=== PATIENT | male | born 1960 | race Caucasian/White ===

== ENCOUNTER 2016-10-01 07:56 | Emergency (ER) | payer SELFPAY ==
[~2016-10-01] VITALS: Ht 180.3 cm; Wt 72.6 kg
[~2016-10-01 07:56] MED LIST: BUPR150T9 PO; GABA-488 PO; HYDR-3812 PO; SERT50TA2 PO
[2016-10-01 09:02] LABS: BASOPHILS # (AUTO) 0.1 10^3/uL (0.0-0.1); BASOPHILS % (AUTO) 1 % (0-10); EOSINOPHILS # (AUTO) 0.1 10^3/uL (0.0-0.3); EOSINOPHILS % (AUTO) 1 % (0-10); LYMPHOCYTES # (AUTO) 1.6 X 10^3 (1.0-4.0); LYMPHOCYTES % (AUTO) 24 % (12-44); MEAN CORPUSCULAR HEMOGLOBIN 30 PG (25-34); MEAN CORPUSCULAR HGB CONC 34 G/DL (32-36); MEAN CORPUSCULAR VOLUME 90 FL (80-99); MEAN PLATELET VOLUME 10.8 FL (7.4-10.4); MONOCYTES # (AUTO) 0.6 X 10^3 (0.0-1.0); MONOCYTES % (AUTO) 9 % (0-12); NEUTROPHILS # (AUTO) 4.2 X 10^3 (1.8-7.8); NEUTROPHILS % (AUTO) 64 % (42-75); PLATELET COUNT 191 10^3/uL (130-400); RED BLOOD COUNT 5.21 10^6/uL (4.35-5.85); RED CELL DISTRIBUTION WIDTH 12.9 % (10.0-14.5); WHITE BLOOD COUNT 6.5 10^3/uL (4.3-11.0)
[2016-10-01 09:25] LABS: ALANINE AMINOTRANSFERASE 15 U/L (0-55); ALBUMIN 4.1 GM/DL (3.2-4.5); ANION GAP 10 MMOL/L (5-14); ASPARTATE AMINO TRANSFERASE 19 U/L (5-34); BILIRUBIN,TOTAL 0.4 MG/DL (0.1-1.0); BLOOD UREA NITROGEN 17 MG/DL (7-18); BUN/CREATININE RATIO 23 (0-20); CALCIUM 8.7 MG/DL (8.5-10.1); CARBON DIOXIDE 20 MMOL/L (21-32); CHLORIDE 109 MMOL/L (98-107); CREATININE SERUM 0.73 MG/DL (0.60-1.30); GFR ESTIMATED > 60; GLUCOSE 82 MG/DL (70-105); HEMOLYSIS 52 (0-29); ICTERUS 0.5 (0-1.9); LIPEMIA 65 (0-49); POTASSIUM 4.6 MMOL/L (3.6-5.0); SODIUM 139 MMOL/L (135-145); TOTAL PROTEIN 6.3 GM/DL (6.4-8.2)
--- NOTE | 2016-10-01 10:24 | ED Headache ---
General Chief Complaint: Head/Cervical Problems Stated Complaint: HEADACHE/DIZZINESS/NAUSEA Nursing Triage Note: PT C/O HEADACHE SINCE WEDNESDAY WHICH IS CAUSING NAUSEA AND DIZZINESS. HE DENIES TAKING ANY MEDICATIONS . Nursing Sepsis Screen: No Definite Risk Source: patient Exam Limitations: no limitations History of Present Illness Time seen by provider: 10:23 Initial Comments To ER with a frontal headache causing nausea and dizziness for the past 3-4 days. He awakened with this one morning. He denies any neck pain or stiffness. No fevers. No history of headaches and no trauma. He developed diarrhea yesterday. Timing/Duration: constant Severity/Quality: moderate Location: frontal Associated Symptoms: No confusion, No fatigue, No facial pain, No fever/chills , No flushing, nausea/vomiting, No nasal congestion, No nasal drainage, No numbness in legs/feet, No rash, No seizures, No sinus infection, No stiff neck, No vision changes, No weakness Allergies and Home Medications Allergies Coded Allergies: No Known Drug Allergies (Unverified , 04/14/16) Home Medications Bupropion HCl 150 Mg Tablet.er, 150 MG PO DAILY, (Reported) Gabapentin 300 Mg Capsule, 300 MG PO TID, (Reported) Hydrocodone/Acetaminophen 1 Each Tablet, 1-2 TAB PO 4-6HR PRN for PAIN, #40 Prescribed by: EVELIA REYNA on 04/17/16 1428 Sertraline HCl 50 Mg Tablet, 50 MG PO HS, (Reported) Constitutional: see HPI Eyes: No Symptoms Reported Ears, Nose, Mouth, Throat: no symptoms reported Respiratory: no symptoms reported Cardiovascular: no symptoms reported Genitourinary: no symptoms reported Musculoskeletal: no symptoms reported Skin: no symptoms reported Psychiatric/Neurological: See HPI, Headache Past Jehjkdy-Xkojme-Ugzgba Hx Patient Social History Alcohol Use: Denies Use Recreational Drug Use: No Smoking Status: Current Everyday Smoker Type Used: Cigarettes 2nd Hand Smoke Exposure: No Recent Foreign Travel: No Contact w/Someone Who Travel: No Recent Infectious Disease Expo: No Recent Hopitalizations: No Immunizations Up To Date Tetanus Booster (TDap): More than 5yrs Seasonal Allergies Seasonal Allergies: No Surgeries HX Surgeries: Yes (URETHRAL DILATION) Respiratory Hx Respiratory Disorders: No Cardiovascular Hx Cardiac Disorders: No Neurological Hx Neurological Disorders: No (porperia & seizures as child) Neurological Disorders: Seizure Disorder Reproductive System Hx Reproductive Disorders: No Sexually Transmitted Disease: No HIV/AIDS: No Genitourinary Hx Genitourinary Disorders: No (urinary problems at early age) Genitourinary Disorders: Prostate Problems Gastrointestinal Hx Gastrointestinal Disorders: Yes (OCCASIONAL REFLUX) Gastrointestinal Disorders: Gastroesophageal Reflux Musculoskeletal Hx Musculoskeletal Disorders: Yes Musculoskeletal Disorders: Chronic Back Pain Endocrine Hx Endocrine Disorders: No HEENT HX ENT Disorders: Yes (GLASSES) Loss of Vision: Bilateral Hearing Impairment: Hard of Hearing Cancer Hx Cancer: No Psychosocial Hx Psychiatric Problems: Yes Behavioral Health Disorders: Anxiety, Depression Integumentary HX Skin/Integumentary Disorder: No Blood Transfusions Hx Blood Disorders: No Adverse Reaction to a Blood Tr: No (N/A) Family Medical History Family Medial History: Alcoholism 19 FATHER G8 BROTHER (alcoholism) Arthritis G8 BROTHER (gout) Diabetes mellitus 19 MOTHER (diabetic leg ulcers) Hypertension 19 MOTHER Neoplasm 19 FATHER (cancer of pancreas) Physical Exam Vital Signs Vital Sign - Last 12Hours 10/01/16 08:30 Temp 97.9 Pulse 75 Resp 16 B/P (MAP) 168/84 Pulse Ox 96 O2 Delivery Room Air Capillary Refill : Less Than 3 Seconds General Appearance: WD/WN, no apparent distress HEENT: PERRL/EOMI, normal ENT inspection Neck: non-tender, full range of motion Cardiovascular: regular rate, rhythm, no murmur Respiratory: normal breath sounds, no respiratory distress, no accessory muscle use Gastrointestinal: normal bowel sounds, non tender, soft Extremities: normal range of motion Psychiatric: alert, oriented x 3 Crainal Nerves: normal hearing, normal speech, PERRL Skin: normal color, warm/dry Progress/Results/Core Measures Results/Orders Lab Results Laboratory Tests Test 10/01/16 08:54 Range/Units White Blood Count 6.5 4.3-11.0 10^3/uL Red Blood Count 5.21 4.35-5.85 10^6/uL Hemoglobin 15.8 13.3-17.7 G/DL Hematocrit 47 40-54 % Mean Corpuscular Volume 90 80-99 FL Mean Corpuscular Hemoglobin 30 25-34 PG Mean Corpuscular Hemoglobin Concent 34 32-36 G/DL Red Cell Distribution Width 12.9 10.0-14.5 % Platelet Count 191 130-400 10^3/uL Mean Platelet Volume 10.8 H 7.4-10.4 FL Neutrophils (%) (Auto) 64 42-75 % Lymphocytes (%) (Auto) 24 12-44 % Monocytes (%) (Auto) 9 0-12 % Eosinophils (%) (Auto) 1 0-10 % Basophils (%) (Auto) 1 0-10 % Neutrophils # (Auto) 4.2 1.8-7.8 X 10^3 Lymphocytes # (Auto) 1.6 1.0-4.0 X 10^3 Monocytes # (Auto) 0.6 0.0-1.0 X 10^3 Eosinophils # (Auto) 0.1 0.0-0.3 10^3/uL Basophils # (Auto) 0.1 0.0-0.1 10^3/uL Sodium Level 139 135-145 MMOL/L Potassium Level 4.6 3.6-5.0 MMOL/L Chloride Level 109 H 98-107 MMOL/L Carbon Dioxide Level 20 L 21-32 MMOL/L Anion Gap 10 5-14 MMOL/L Blood Urea Nitrogen 17 7-18 MG/DL Creatinine 0.73 0.60-1.30 MG/DL Estimat Glomerular Filtration Rate > 60 BUN/Creatinine Ratio 23 H 0-20 Glucose Level 82 70-105 MG/DL Calcium Level 8.7 8.5-10.1 MG/DL Total Bilirubin 0.4 0.1-1.0 MG/DL Aspartate Amino Transf (AST/SGOT) 19 5-34 U/L Alanine Aminotransferase (ALT/SGPT) 15 0-55 U/L Alkaline Phosphatase 59 40-136 U/L Total Protein 6.3 L 6.4-8.2 GM/DL Albumin 4.1 3.2-4.5 GM/DL My Orders Orders - PATEL MERCHANT APRN Ct Head Wo (10/01/16 10:20) Prochlorperazine Injection (Compazine In (10/01/16 10:30) Ns Iv 1000 Ml (Sodium Chloride 0.9%) (10/01/16 10:30) Diphenhydramine Injection (Benadryl Inje (10/01/16 10:30) Ketorolac Injection (Toradol Injection) (10/01/16 10:30) Medications Given in ED Current Medications Medications Dose Ordered Sig/Anibal Route Start Time Stop Time Status Last Admin Dose Admin Diphenhydramine HCl 25 mg ONCE ONCE IVP 10/01/16 10:30 10/01/16 10:31 DC 10/01/16 10:41 25 MG Ketorolac Tromethamine 30 mg ONCE ONCE IVP 10/01/16 10:30 10/01/16 10:31 DC 10/01/16 10:41 30 MG Prochlorperazine Edisylate 5 mg ONCE ONCE IV 10/01/16 10:30 10/01/16 10:31 DC 10/01/16 10:41 5 MG Vital Signs/I&O Vital Sign - Last 12Hours 10/01/16 08:30 Temp 97.9 Pulse 75 Resp 16 B/P (MAP) 168/84 Pulse Ox 96 O2 Delivery Room Air Blood Pressure Mean: 112 Departure Communication Family Conversation [id number] Compazine and Benadryl Toradol, his headache is much improved. He states he is ready to go home. Progress Notes NAME: HAVEN TEJADA [facility] REC#: [id number] PT STATUS: REG ER : 1960 PHYSICIAN: PATEL MERCHANT APRN ADMIT DATE: 10/01/16/ER Draft Date of Exam:10/01/16 CT HEAD WO PROCEDURE: CT head without contrast. TECHNIQUE: Multiple contiguous axial images were obtained through the brain without the use of intravenous contrast. INDICATION: Headache. FINDINGS: There is no intracranial hemorrhage, edema or mass effect. The brain parenchyma and garrett-white matter differentiation is preserved. There is no hydrocephalus. No extra-axial fluid collection is seen. The calvarium, the paranasal sinuses and visualized portions of the orbits appear grossly unremarkable. IMPRESSION: Unremarkable exam. Dictated on workstation # [id number] Dict: 10/01/16 1050 Trans: 10/01/16 1057 [facility] [id number] Interpreted by: NATALIA JEAN MD Electronically signed by: Impression Impression: Primary Impression: Headache Disposition: HOME, SELF-CARE Condition: Stable Departure-Patient Inst. Decision time for Depature: 11:01 Referrals: [facility] (PCP/Family) Primary Care Physician Patient Instructions: Headache, Adult (DC) Add. Discharge Instructions: 1. Return to ER for any concerns such as worsening pain 2. See her doctor next week 3. All discharge instructions reviewed with patient and/or family. Voiced understanding. Work/School Note: Work Release Form Date Seen in the Emergency Department: Oct 01, 2016 Return to Work: Oct 02, 2016 PATEL MERCHANT APRN Oct 01, 2016 10:24
[2016-10-01] MEDS ORDERED: PROCHLORPERAZINE 10 MG/2ML INJ (COMPAZINE) IV ONE (10:30)
[2016-10-01] MEDS ORDERED: KETOROLAC 30 MG/ML VIAL IVP ONE (10:30)
[2016-10-01] MEDS ORDERED: diphenhydrAMINE 50 MG/ML INJ (BENADRYL) IVP ONE (10:30)
[2016-10-01] MEDS ORDERED: NS IV 1000 ML 1,000 ML IV SCH (10:30)
--- NOTE | 2016-10-01 10:58 | Diagnostic Imaging Report ---
PROCEDURE: CT head without contrast. TECHNIQUE: Multiple contiguous axial images were obtained through the brain without the use of intravenous contrast. INDICATION: Headache. FINDINGS: There is no intracranial hemorrhage, edema or mass effect. The brain parenchyma and garrett-white matter differentiation is preserved. There is no hydrocephalus. No extra-axial fluid collection is seen. The calvarium, the paranasal sinuses and visualized portions of the orbits appear grossly unremarkable. IMPRESSION: Unremarkable exam. Dictated by: Dictated on workstation # [id number]
[2016-10-01 11:30] VITALS: BP 168/84
== END 2016-10-01 11:30 | disposition home or self-care (01) ==
LOC: EDUNIT# 07:56 → ER 07:58
DX: R51 Headache (principal); F41.8 Other specified anxiety disorders; G40.909 Epilepsy, unspecified, not intractable, without status epilepticus; F17.210 Nicotine dependence, cigarettes, uncomplicated
CPT/HCPCS: 36415; 70450; 80053; 85025; 99282

== ENCOUNTER 2017-07-23 13:35 | Emergency (ER) | payer BC, OTHER ==
[~2017-07-23] VITALS: Ht 180.3 cm; Wt 72.6 kg
[~2017-07-23 13:35] MED LIST changes: +ACHD5005 PO; -HYDR-3812 PO
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
--- OUTSIDE RECORDS SUMMARY | 2017-07-23 13:43 | XMS REPORT ---
Author Author BRENDAN Fletcher [facility] Address Unknown Care Team Providers Care Event Sales Representative Name Role Phone BRENDAN Fletcher Unavailable PROBLEMS Type Condition ICD9-CM Code ZFU46-YS Code Onset Dates Condition Status SNOMED Code Problem COPD (chronic obstructive pulmonary disease) J44.9 Active 32020628 Problem Physical exam Z00.00 Active 786153275 Problem Hypoglycemia E16.2 Active 023954003 ALLERGIES Substance Reaction Event Type Date Status N.K.D.A. Unknown Non Drug Allergy Mar, Unknown SOCIAL HISTORY No smoking Hx information available PLAN OF CARE Activity Details Follow Up prn Reason:te #4 VITAL SIGNS Blood pressure systolic 111 mmHg 2016-04-15 Blood pressure diastolic 82 mmHg 2016-04-15 MEDICATIONS Medication Instructions Dosage Frequency Start Date End Date Duration Status Amoxicillin 500 MG Orally 4 times a day 1 capsule 6h Mar, Apr, 7 days Active [place] 5-325 MG Orally every 6 hrs 1 tablet as needed 6h Mar,Apr 4 days Active RESULTS No Results PROCEDURES Procedure Date Ordered Related Diagnosis Body Site LTD ORAL EVALUATION - PROBLEM FOCUS Apr 15, 2016 INTRAORL-PERIAPICAL 1 FILM 20853 Apr 15, 2016 IMMUNIZATIONS No Known Immunizations
--- OUTSIDE RECORDS SUMMARY | 2017-07-23 13:44 | XMS REPORT | Continuity of Care Document ---
Author Author [facility] Organization [facility] Address Unknown Phone Unavailable Allergies Active Description Code Type Severity Reaction Onset Reported/Identified Relationship to Patient Clinical Status Yes codeine [id number] Drug Allergy Unknown N/A 01/15/2015 Yes No Known Drug Allergies [id number] Drug Allergy Unknown N/A 04/14/2016 Medications There is no data. Problems Date Dx Coded Attending Type Code Diagnosis Diagnosed By 01/15/2015 PATEL MERCHANT APRN Ot 719.46 JOINT PAIN-L/LEG 03/03/2015 MICHELLE MORAN, LILIBETH Swenson Ot F10.129 ALCOHOL ABUSE WITH INTOXICATION, UNSPECI 03/03/2015 LILIBETH MARTINEZ MD Ot F17.210 NICOTINE DEPENDENCE, CIGARETTES, UNCOMPL 03/03/2015 LILIBETH MARTINEZ MD Ot F10.129 03/03/2015 LILIBETH MARTINEZ MD Ot F17.210 05/10/2015 RELL LAMB MD Ot F17.210 NICOTINE DEPENDENCE, CIGARETTES, UNCOMPL 05/10/2015 RELL LAMB MD Ot R07.89 OTHER CHEST PAIN 05/10/2015 RELL LAMB MD Ot R53.83 OTHER FATIGUE 12/05/2015 LILIBETH MARTINEZ MD Ot R05 COUGH 12/10/2015 LILIBETH MARTINEZ MD Ot R05 COUGH 12/19/2015 LILIBETH MARTINEZ MD Ot R05 COUGH 03/11/2016 EVELIA REYNA MD Ot K62.5 HEMORRHAGE OF ANUS AND RECTUM 03/11/2016 EVELIA REYNA MD Ot Z01.818 ENCOUNTER FOR OTHER PREPROCEDURAL EXAMIN 03/13/2016 EVELIA REYNA MD Ot K62.5 HEMORRHAGE OF ANUS AND RECTUM 03/13/2016 EVELIA REYNA MD Ot Z01.818 ENCOUNTER FOR OTHER PREPROCEDURAL EXAMIN 03/16/2016 LILIBETH MARTINEZ MD, Ot R05 COUGH 03/16/2016 EVELIA REYNA MD Ot K40.90 UNIL INGUINAL HERNIA, W/O OBST OR GANGR, 03/16/2016 EVELIA REYNA MD Ot K64.8 OTHER HEMORRHOIDS 04/14/2016 EVELIA REYNA MD Ot K40.90 UNIL INGUINAL HERNIA, W/O OBST OR GANGR, 04/14/2016 EVELIA REYNA MD Ot Z01.812 ENCOUNTER FOR PREPROCEDURAL LABORATORY E 04/14/2016 EVELIA REYNA MD Ot Z11.2 ENCOUNTER FOR SCREENING FOR OTHER BACTER 04/15/2016 EVELIA REYNA MD Ot K40.90 UNIL INGUINAL HERNIA, W/O OBST OR GANGR, 04/15/2016 EVELIA REYNA MD Ot Z01.812 ENCOUNTER FOR PREPROCEDURAL LABORATORY E 04/15/2016 EVELIA REYNA MD Ot Z11.2 ENCOUNTER FOR SCREENING FOR OTHER BACTER 04/17/2016 LILIBETH MARTINEZ MD Ot R05 COUGH 04/17/2016 EVELIA REYNA MD Ot 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 Results Test Result Range Complete blood count (CBC) with automated white blood cell (WBC) differential - 04/14/16 09:45 Blood leukocytes automated count (number/volume) 9.1 10*3/uL 4.3-11.0 Blood erythrocytes automated count (number/volume) 5.70 10*6/uL 4.35-5.85 Venous blood hemoglobin measurement (mass/volume) 17.3 g/dL 13.3-17.7 Blood hematocrit (volume fraction) 51 % 40-54 Automated erythrocyte mean corpuscular volume 90 [foz_us] 80-99 Automated erythrocyte mean corpuscular hemoglobin (mass per erythrocyte) 30 pg 25-34 Automated erythrocyte mean corpuscular hemoglobin concentration measurement ( mass/volume) 34 g/dL 32-36 Automated erythrocyte distribution width ratio 12.8 % 10.0-14.5 Automated blood platelet count (count/volume) 217 10*3/uL 130-400 Automated blood platelet mean volume measurement 10.3 [foz_us] 7.4-10.4 Automated blood neutrophils/100 leukocytes 67 % 42-75 Automated blood lymphocytes/100 leukocytes 22 % 12-44 Blood monocytes/100 leukocytes 8 % 0-12 Automated blood eosinophils/100 leukocytes 2 % 0-10 Automated blood basophils/100 leukocytes 0 % 0-10 Blood neutrophils automated count (number/volume) 6.1 10*3 1.8-7.8 Blood lymphocytes automated count (number/volume) 2.0 10*3 1.0-4.0 Blood monocytes automated count (number/volume) 0.8 10*3 0.0-1.0 Automated eosinophil count 0.2 10*3/uL 0.0-0.3 Automated blood basophil count (count/volume) 0.0 10*3/uL 0.0-0.1 Methicillin resistant Staphylococcus aureus (MRSA) screening culture - 09:45 Methicillin resistant Staphylococcus aureus (MRSA) screening culture NEG NRG Complete blood count (CBC) with automated white blood cell (WBC) differential - 10/01/16 08:54 Blood leukocytes automated count (number/volume) 6.5 10*3/uL 4.3-11.0 Blood erythrocytes automated count (number/volume) 5.21 10*6/uL 4.35-5.85 Venous blood hemoglobin measurement (mass/volume) 15.8 g/dL 13.3-17.7 Blood hematocrit (volume fraction) 47 % 40-54 Automated erythrocyte mean corpuscular volume 90 [foz_us] 80-99 Automated erythrocyte mean corpuscular hemoglobin (mass per erythrocyte) 30 pg 25-34 Automated erythrocyte mean corpuscular hemoglobin concentration measurement ( mass/volume) 34 g/dL 32-36 Automated erythrocyte distribution width ratio 12.9 % 10.0-14.5 Automated blood platelet count (count/volume) 191 10*3/uL 130-400 Automated blood platelet mean volume measurement 10.8 [foz_us] 7.4-10.4 Automated blood neutrophils/100 leukocytes 64 % 42-75 Automated blood lymphocytes/100 leukocytes 24 % 12-44 Blood monocytes/100 leukocytes 9 % 0-12 Automated blood eosinophils/100 leukocytes 1 % 0-10 Automated blood basophils/100 leukocytes 1 % 0-10 Blood neutrophils automated count (number/volume) 4.2 10*3 1.8-7.8 Blood lymphocytes automated count (number/volume) 1.6 10*3 1.0-4.0 Blood monocytes automated count (number/volume) 0.6 10*3 0.0-1.0 Automated eosinophil count 0.1 10*3/uL 0.0-0.3 Automated blood basophil count (count/volume) 0.1 10*3/uL 0.0-0.1 Comprehensive metabolic panel - 10/01/16 08:54 Serum or plasma sodium measurement (moles/volume) 139 mmol/L 135-145 Serum or plasma potassium measurement (moles/volume) 4.6 mmol/L 3.6-5.0 Serum or plasma chloride measurement (moles/volume) 109 mmol/L 98-107 Carbon dioxide 20 mmol/L 21-32 Serum or plasma anion gap determination (moles/volume) 10 mmol/L 5-14 Serum or plasma urea nitrogen measurement (mass/volume) 17 mg/dL 7-18 Serum or plasma creatinine measurement (mass/volume) 0.73 mg/dL 0.60-1.30 Serum or plasma urea nitrogen/creatinine mass ratio 23 0 -20 Serum or plasma creatinine measurement with calculation of estimated glomerular filtration rate > NRG Serum or plasma glucose measurement (mass/volume) 82 mg/dL 70-105 Serum or plasma calcium measurement (mass/volume) 8.7 mg/dL 8.5-10.1 Serum or plasma total bilirubin measurement (mass/volume) 0.4 mg/dL 0.1-1.0 Serum or plasma alkaline phosphatase measurement (enzymatic activity/volume) 59 U/L 40-136 Serum or plasma aspartate aminotransferase measurement (enzymatic activity/ volume) 19 U/L 5-34 Serum or plasma alanine aminotransferase measurement (enzymatic activity/volume ) 15 U/L 0-55 Serum or plasma protein measurement (mass/volume) 6.3 g/dL 6.4-8.2 Serum or plasma albumin measurement (mass/volume) 4.1 g/dL 3.2-4.5 Encounters ACCT No. Visit Date/Time Discharge Status Pt. Type Provider Facility Loc./Unit Complaint [id number] 10/01/2016 07:58:00 10/01/2016 11:30:00 DIS Emergency PATEL MERCHANT [employer] [facility] ER HEADACHE/DIZZINESS/NAUSEA [id number] 04/17/2016 10:53:00 04/17/2016 17:15:00 DIS Outpatient MARIBELL MORAN, EVELIA Hines [facility] RIGHT INGUINAL HERNIA [id number] 04/14/2016 09:21:00 04/14/2016 13:34:00 DIS Outpatient EVELIA REYNA MD [facility] PREOP RIGHT INGUINAL HERNIA [id number] 03/16/2016 09:56:00 03/16/2016 13:05:00 DIS Outpatient EVELIA REYNA MD [facility] RECTAL BLEEDING [id number] 03/11/2016 05:43:00 03/11/2016 13:58:00 DIS Outpatient EVELIA REYNA MD [facility] PREOP RECTAL BLEEDING [id number] 12/03/2015 17:55:00 12/03/2015 23:59:59 CLS Outpatient LILIBETH MARTINEZ MD [facility] RAD COUGH [id number] 05/10/2015 11:22:00 05/10/2015 23:59:59 CLS Emergency RELL LAMB MD [facility] ER [id number] 03/02/2015 20:50:00 03/03/2015 10:00:00 DIS Inpatient LILIBETH MARTINEZ MD [facility] ICU [id number] 01/15/2015 18:21:00 01/15/2015 19:20:00 DIS Emergency PATEL MERCHANT [employer] [facility] ER
[2017-07-23] MEDS ORDERED: AMOX500C2 PO (14:08)
--- NOTE | 2017-07-23 14:08 | ED EENT ---
History of Present Illness General Stated Complaint: LEFT EAR PAIN Source: patient Exam Limitations: no limitations History of Present Illness Date Seen by Provider: Jul 23, 2017 Time Seen by Provider: 13:55 Initial Comments Here with report of left ear pain that started today after blowing his nose. He felt a pop. States that he's had 3 days of sinus congestion and pain as well as runny nose. Denies fevers. He does smoke. Denies breathing problems otherwise. Timing/Duration: gradual Location: ear (L), nose Prearrival Treatment: no prearrival treatment Modifying Factors: Improves With Rest Associated Symptoms: No cough, No drooling, No ear drainage, No fever, nasal congestion/drainage, sinus infection, sore throat Allergies and Home Medications Allergies Coded Allergies: No Known Drug Allergies (Unverified , 04/14/16) Home Medications Bupropion HCl 150 Mg Tablet.er, 150 MG PO DAILY, (Reported) Gabapentin 300 Mg Capsule, 300 MG PO TID, (Reported) Hydrocodone Bit/Acetaminophen 1 Each Tablet, 1-2 TAB PO 4-6HR PRN for PAIN Prescribed by: EVELIA REYNA on 04/17/16 1428 Sertraline HCl 50 Mg Tablet, 50 MG PO HS, (Reported) Patient Home Medication List Home Medication List Reviewed: Yes Review of Systems Constitutional: see HPI, No chills, No fever Eyes: No Symptoms Reported Ears: See HPI, Pain, Denies Bloody Discharge, Denies Clear Discharge, Denies Purulent Discharge Nose: see HPI Mouth: no symptoms reported Throat: see HPI Respiratory: no symptoms reported, No cough, No short of breath Cardiovascular: no symptoms reported Gastrointestinal: no symptoms reported Past Sibzghh-Wlbskt-Ljdwio Hx Past Med/Social Hx: Reviewed Nursing Past Med/Soc Hx Patient Social History Smoking Status: Current Everyday Smoker Type Used: Cigarettes 2nd Hand Smoke Exposure: No Recent Foreign Travel: No Contact w/Someone Who Travel: No Recent Hopitalizations: No Immunizations Up To Date Tetanus Booster (TDap): More than 5yrs Seasonal Allergies Seasonal Allergies: No Past Medical History Surgeries: Yes (URETHRAL DILATION, INGUINAL HERNIA) Respiratory: No Currently Using CPAP: No Currently Using BIPAP: No Cardiac: No Neurological: No (porperia & seizures as child) Seizure Disorder Reproductive Disorders: No Sexually Transmitted Disease: No HIV/AIDS: No Prostate Problems Gastrointestinal: Yes (OCCASIONAL REFLUX) Gastroesophageal Reflux Musculoskeletal: Yes Chronic Back Pain Endocrine: No Loss of Vision: Bilateral Hearing Impairment: Hard of Hearing Cancer: No Psychosocial: Yes Anxiety, Depression Integumentary: No Blood Disorders: No Adverse Reaction/Blood Tranf: No (N/A) Family Medical History Reviewed Nursing Family Hx Alcoholism 19 FATHER G8 BROTHER (alcoholism) Arthritis G8 BROTHER (gout) Diabetes mellitus 19 MOTHER (diabetic leg ulcers) Hypertension 19 MOTHER Neoplasm 19 FATHER (cancer of pancreas) Physical Exam General Appearance: WD/WN, no apparent distress Eyes: bilateral eye normal inspection, bilateral eye PERRL, bilateral eye EOMI Ears: right ear TM normal, left ear TM red, bilateral ear canal normal, bilateral ear TM bulging Nose: sinus tenderness, other (moderate nasal congestion with clear rhinorrhea bilateral) Mouth/Throat: No tonsillar swelling, other (pharyngeal erythema) Neck: full range of motion, supple Cardiovascular: regular rate, rhythm, no murmur Respiratory: lungs clear, normal breath sounds Gastrointestinal: non tender, soft Neurologic/Psychiatric: alert, oriented x 3 Skin: normal color, warm/dry Progress/Results/Core Measures My Orders Orders - HAVEN HYDE MD Dexamethasone Injection (Decadron Inject (07/23/17 14:15) Progress Note : Progress Note Seen and evaluated. Decadron 10 mg IM. Discharged home with return precautions. Patient verbalize understanding instructions and agreement with plan. Departure Impression Primary Impression: Acute maxillary sinusitis Qualified Codes: J01.00 - Acute maxillary sinusitis, unspecified Additional Impression: Otalgia, left ear Disposition: 01 HOME, SELF-CARE Condition: Improved Departure-Patient Inst. Decision time for Depature: 14:06 Referrals: EMMANUELLE LOCKE MD (PCP/Family) Primary Care Physician Patient Instructions: Bacterial Upper Respiratory Infection, Adult (DC), Sinusitis, Adult (DC) Add. Discharge Instructions: Take medications as directed. You may take ibuprofen 800 mg every 8 hours as needed for pain. You may take Tylenol/acetaminophen 1000 mg every 8 hours as needed for pain. You may use Afrin nasal spray or the generic, 12 hour relief, 2 sprays to each nostril twice daily for 3 days only and then stop. Do not use more than 3 days. Scripts Amoxicillin (Amoxicillin) 500 Mg Capsule 500 MG PO TID, #30 CAP 0 Refills Prov: HAVEN HYDE MD 07/23/17 HAVEN HYDE MD Jul 23, 2017 14:08
[2017-07-23] MEDS ORDERED: DEXAMETHASONE 10 MG/ML (DECADRON) 1 ML VIAL IM ONE (14:15)
[2017-07-23 15:04] VITALS: BP 154/95
== END 2017-07-23 15:04 | disposition home or self-care (01) ==
LOC: EDUNIT# 13:35 → ER 13:38
DX: J01.00 Acute maxillary sinusitis, unspecified (principal); H92.02 Otalgia, left ear; F41.9 Anxiety disorder, unspecified; F32.9 Major depressive disorder, single episode, unspecified; G40.909 Epilepsy, unspecified, not intractable, without status epilepticus; K21.9 Gastro-esophageal reflux disease without esophagitis; F17.210 Nicotine dependence, cigarettes, uncomplicated; Z87.19 Personal history of other diseases of the digestive system
CPT/HCPCS: 96372; 99284

== ENCOUNTER 2018-09-24 15:32 | Emergency (ER) | payer SELFPAY ==
[~2018-09-24] VITALS: Ht 180.3 cm; Wt 70.3 kg
[~2018-09-24 15:32] MED LIST changes: +AMOX500C2 PO
--- NOTE | 2018-09-24 16:07 | NUR ---
ILENE IN W/ PT
[2018-09-24 16:14] LABS: BASOPHILS % (AUTO) 0 % (0-10); EOSINOPHILS # (AUTO) 0.2 10^3/uL (0.0-0.3); EOSINOPHILS % (AUTO) 2 % (0-10); HEMATOCRIT 44 % (40-54); HEMOGLOBIN 14.5 G/DL (13.3-17.7); LYMPHOCYTES # (AUTO) 2.9 X 10^3 (1.0-4.0); LYMPHOCYTES % (AUTO) 36 % (12-44); MEAN CORPUSCULAR HEMOGLOBIN 29 PG (25-34); MEAN CORPUSCULAR HGB CONC 33 G/DL (32-36); MEAN CORPUSCULAR VOLUME 89 FL (80-99); MEAN PLATELET VOLUME 10.2 FL (7.4-10.4); MONOCYTES # (AUTO) 0.5 X 10^3 (0.0-1.0); MONOCYTES % (AUTO) 7 % (0-12); NEUTROPHILS # (AUTO) 4.3 X 10^3 (1.8-7.8); NEUTROPHILS % (AUTO) 54 % (42-75); PLATELET COUNT 268 10^3/uL (130-400); RED CELL DISTRIBUTION WIDTH 14.1 % (10.0-14.5); WHITE BLOOD COUNT 7.9 10^3/uL (4.3-11.0)
--- NOTE | 2018-09-24 16:29 | NUR ---
PT SITTING QUIETLY IN ROOM. ADDITIONAL BLOOD BEING DRAWN AT THIS TIME.
[2018-09-24 16:31] LABS: ALANINE AMINOTRANSFERASE 33 U/L (0-55); ALBUMIN 4.1 GM/DL (3.2-4.5); ALKALINE PHOSPHATASE 78 U/L (40-136); BILIRUBIN,TOTAL 0.2 MG/DL (0.1-1.0); BUN/CREATININE RATIO 11; CALCIUM 9.2 MG/DL (8.5-10.1); CARBON DIOXIDE 23 MMOL/L (21-32); CHLORIDE 103 MMOL/L (98-107); CREATININE SERUM 0.85 MG/DL (0.60-1.30); GFR ESTIMATED > 60; GLUCOSE 138 MG/DL (70-105); POTASSIUM 3.9 MMOL/L (3.6-5.0); SODIUM 138 MMOL/L (135-145); TOTAL PROTEIN 6.8 GM/DL (6.4-8.2)
[2018-09-24] MEDS ORDERED: DOXY100T2 PO (16:55)
--- NOTE | 2018-09-24 16:56 | ED General ---
General Chief Complaint: General Problems/Pain Stated Complaint: TICK BITES, LFT ARM PIT, BELLY BUTTON,FEELING WEEK Nursing Triage Note: PT TO ED W/ C/O WEAKNESS, INCREASED FATIGUE ONSET AFTER MULTIPLE TICK BITES. REPORTS SLEEPING MORE THAN NORMAL ONSET X1 WK AGO AFTER NOTING TICK IN HIS "BELLY BUTTON". NO OTHER C/O VOICED Nursing Sepsis Screen: No Definite Risk Source of Information: Patient Exam Limitations: No Limitations History of Present Illness Date Seen by Provider: Sep 24, 2018 Time Seen by Provider: 15:50 Initial Comments 58-year-old male who presents to the emergency room with complaints of weakness, fatigue, sleeping more than normal for the past week after noticing a tick bite on his umbilical area. He denies fevers. Timing/Duration: 1 Week Associated Systoms: Malaise, Weakness Allergies and Home Medications Allergies Coded Allergies: No Known Drug Allergies (Unverified , 04/14/16) Home Medications Doxycycline Hyclate 100 Mg Tablet, 100 MG PO BID Prescribed by: ILENE TAN on 09/24/18 0042 Patient Home Medication List Home Medication List Reviewed: Yes Review of Systems Review of Systems Constitutional: see HPI, malaise, weakness All Other Systems Reviewed Negative Unless Noted: Yes Past Hpzbvdm-Zhzlph-Ptztwx Hx Past Med/Social Hx: Reviewed Nursing Past Med/Soc Hx Patient Social History Alcohol Use: Denies Use Recreational Drug Use: No Smoking Status: Current Everyday Smoker Type Used: Cigarettes 2nd Hand Smoke Exposure: No Recent Foreign Travel: No Contact w/Someone Who Travel: No Recent Infectious Disease Expo: No Recent Hopitalizations: No Physical Abuse: No Sexual Abuse: No Mistreated: No Fear: No Immunizations Up To Date Tetanus Booster (TDap): More than 5yrs Seasonal Allergies Seasonal Allergies: No Past Medical History Surgeries: Yes (URETHRAL DILATION, INGUINAL HERNIA) Respiratory: No Currently Using CPAP: No Currently Using BIPAP: No Cardiac: No Neurological: No (porperia & seizures as child) Seizure Disorder Reproductive Disorders: No Sexually Transmitted Disease: No HIV/AIDS: No Prostate Problems Gastrointestinal: Yes (OCCASIONAL REFLUX) Gastroesophageal Reflux Musculoskeletal: Yes Chronic Back Pain Endocrine: No Loss of Vision: Bilateral Hearing Impairment: Hard of Hearing Cancer: No Psychosocial: Yes Anxiety, Depression Integumentary: No Blood Disorders: No Adverse Reaction/Blood Tranf: No (N/A) Family Medical History Reviewed Nursing Family Hx Alcoholism 19 FATHER G8 BROTHER (alcoholism) Arthritis G8 BROTHER (gout) Diabetes mellitus 19 MOTHER (diabetic leg ulcers) Hypertension 19 MOTHER Neoplasm 19 FATHER (cancer of pancreas) Physical Exam Vital Signs Vital Signs - First Documented 09/24/18 15:37 Temp 97.4 Pulse 89 Resp 18 B/P (MAP) 150/97 (114) Pulse Ox 97 O2 Delivery Room Air Capillary Refill : Less Than 3 Seconds Height, Weight, BMI Height: 5'11.00" Weight: 155lbs. 0oz. 70.648241vo; 21.6 BMI Method:Stated General Appearance: No Apparent Distress, WD/WN HEENT: PERRL/EOMI, TMs Normal, Normal ENT Inspection, Pharynx Normal Respiratory: Chest Non Tender, Lungs Clear, Normal Breath Sounds, No Accessory Muscle Use, No Respiratory Distress Cardiovascular: Regular Rate, Rhythm, No Edema, No Gallop, No JVD, No Murmur, Normal Peripheral Pulses Neurologic/Psychiatric: Alert, Oriented x3, Normal Mood/Affect Skin: Normal Color, Warm/Dry Progress/Results/Core Measures Suspected Sepsis Recent Fever Within 48 Hours: No Infection Criteria Present: None New/Unexplained Altered Menta: No Sepsis Screen: No Definite Risk SIRS Temperature:97.4 Pulse: 89 Respiratory Rate: 18 Laboratory Tests 09/24/18 15:54: White Blood Count 7.9 Blood Pressure 150 /97 Mean: 114 Laboratory Tests 09/24/18 15:54: Creatinine 0.85, Platelet Count 268, Total Bilirubin 0.2 Results/Orders Lab Results Laboratory Tests Test 09/24/18 15:54 Range/Units White Blood Count 7.9 4.3-11.0 10^3/uL Red Blood Count 4.95 4.35-5.85 10^6/uL Hemoglobin 14.5 13.3-17.7 G/DL Hematocrit 44 40-54 % Mean Corpuscular Volume 89 80-99 FL Mean Corpuscular Hemoglobin 29 25-34 PG Mean Corpuscular Hemoglobin Concent 33 32-36 G/DL Red Cell Distribution Width 14.1 10.0-14.5 % Platelet Count 268 130-400 10^3/uL Mean Platelet Volume 10.2 7.4-10.4 FL Neutrophils (%) (Auto) 54 42-75 % Lymphocytes (%) (Auto) 36 12-44 % Monocytes (%) (Auto) 7 0-12 % Eosinophils (%) (Auto) 2 0-10 % Basophils (%) (Auto) 0 0-10 % Neutrophils # (Auto) 4.3 1.8-7.8 X 10^3 Lymphocytes # (Auto) 2.9 1.0-4.0 X 10^3 Monocytes # (Auto) 0.5 0.0-1.0 X 10^3 Eosinophils # (Auto) 0.2 0.0-0.3 10^3/uL Basophils # (Auto) 0.0 0.0-0.1 10^3/uL Sodium Level 138 135-145 MMOL/L Potassium Level 3.9 3.6-5.0 MMOL/L Chloride Level 103 98-107 MMOL/L Carbon Dioxide Level 23 21-32 MMOL/L Anion Gap 12 5-14 MMOL/L Blood Urea Nitrogen 9 7-18 MG/DL Creatinine 0.85 0.60-1.30 MG/DL Estimat Glomerular Filtration Rate > 60 BUN/Creatinine Ratio 11 Glucose Level 138 H 70-105 MG/DL Calcium Level 9.2 8.5-10.1 MG/DL Corrected Calcium 9.1 8.5-10.1 MG/DL Total Bilirubin 0.2 0.1-1.0 MG/DL Aspartate Amino Transf (AST/SGOT) 25 5-34 U/L Alanine Aminotransferase (ALT/SGPT) 33 0-55 U/L Alkaline Phosphatase 78 40-136 U/L Total Protein 6.8 6.4-8.2 GM/DL Albumin 4.1 3.2-4.5 GM/DL My Orders Orders - ILENE TAN Tick Panel With Lyme Eia (09/24/18 15:50) Cbc With Automated Diff (09/24/18 16:09) Comprehensive Metabolic Panel (09/24/18 16:09) Vital Signs/I&O Capillary Refill : Less Than 3 Seconds Blood Pressure Mean: 114 Departure Impression Primary Impression: Suspected tickborne illness Disposition: 01 HOME, SELF-CARE Condition: Stable/Unchanged Departure-Patient Inst. Decision time for Depature: 16:54 Referrals: EMMANUELLE LOCKE MD (PCP/Family) Primary Care Physician Patient Instructions: Lyme Disease Test Add. Discharge Instructions: Take medication as directed. Follow-up with your primary care provider within 1 week for recheck. Return back to the emergency room for worsening symptoms or concerns as needed. All discharge instructions reviewed with patient and/or family. Voiced understanding. Scripts Doxycycline Hyclate (Doxycycline Hyclate) 100 Mg Tablet 100 MG PO BID for 7 Days, #14 TAB 0 Refills Prov: ILENE TAN 09/24/18 ILENE TAN Sep 24, 2018 16:56
[2018-09-24 17:01] VITALS: BP 151/92
== END 2018-09-24 17:01 | disposition home or self-care (01) ==
LOC: EDUNIT# 15:32 → ER 15:34
DX: R53.1 Weakness (principal); R53.83 Other fatigue; G47.9 Sleep disorder, unspecified; G40.909 Epilepsy, unspecified, not intractable, without status epilepticus; K21.9 Gastro-esophageal reflux disease without esophagitis; F41.9 Anxiety disorder, unspecified; F32.9 Major depressive disorder, single episode, unspecified; F17.210 Nicotine dependence, cigarettes, uncomplicated; Z98.890 Other specified postprocedural states; Z80.0 Family history of malignant neoplasm of digestive organs
CPT/HCPCS: 36415; 80053; 85025; 86618; 86666; 86668; 86757

== ENCOUNTER 2018-12-23 19:20 | Emergency (ER) | payer SELFPAY ==
[~2018-12-23] VITALS: Ht 180.3 cm; Wt 72.6 kg
[~2018-12-23 19:20] MED LIST changes: +DOXY100T2 PO
[2018-12-23] MEDS ORDERED: DEXAMETHASONE 10 MG/ML (DECADRON) 1 ML VIAL IM ONE (19:45)
[2018-12-23] MEDS ORDERED: AUGMENTIN 875 MG TAB (AMOXICILLIN/CLAVULANATE) PO SCH (19:45)
[2018-12-23] MEDS ORDERED: AMOX500C2 PO (19:47)
--- NOTE | 2018-12-23 19:47 | Diagnostic Imaging Report ---
EXAMINATION: Two-view chest. INDICATION: Sinus pressure and headaches. Cough. COMPARISON: Comparison is made with a prior study from February 02, 2016. FINDINGS: There are chronic interstitial changes within the lungs with pulmonary hyperinflation suggesting underlying COPD. There is no focal infiltrate or effusion. There is no pneumothorax. Heart size and mediastinal contours appear appropriate. Pulmonary vascularity appears normal. IMPRESSION: 1. Apparent interstitial changes with hyperinflation suggesting underlying COPD. No new acute superimposed cardiopulmonary process evident. Dictated by: Dictated on workstation # [id number]
--- NOTE | 2018-12-23 19:48 | ED EENT ---
History of Present Illness General Chief Complaint: Nasal Problems Stated Complaint: HEADACHE / COUGH Nursing Triage Note: intermittant frontal headache/sinus pressure/cough x3 weeks Source: patient Exam Limitations: no limitations History of Present Illness Date Seen by Provider: Dec 23, 2018 Time Seen by Provider: 19:44 Initial Comments To Er with c/o frontal sinus pressure, headache, nasal congestion and cough x3 weeks. No feverse. Timing/Duration: gradual Severity: moderate Location: facial Prearrival Treatment: no prearrival treatment Associated Symptoms: denies symptoms Allergies and Home Medications Allergies Coded Allergies: No Known Drug Allergies (Unverified , 04/14/16) Home Medications No Active Prescriptions or Reported Meds Patient Home Medication List Home Medication List Reviewed: Yes Review of Systems Review of Systems Constitutional: see HPI Eyes: No Symptoms Reported Ears: No Symptoms Reported Nose: see HPI Mouth: no symptoms reported Throat: no symptoms reported Respiratory: no symptoms reported Cardiovascular: no symptoms reported Musculoskeletal: no symptoms reported Skin: no symptoms reported Neurological: No Symptoms Reported Hematologic/Lymphatic: No Symptoms Reported Past Glkdlwo-Pdaoca-Pcqdnr Hx Patient Social History Alcohol Use: Denies Use Recreational Drug Use: No Smoking Status: Current Everyday Smoker Type Used: Cigarettes 2nd Hand Smoke Exposure: No Recent Foreign Travel: No Contact w/Someone Who Travel: No Recent Infectious Disease Expo: No Recent Hopitalizations: No Physical Abuse: No Sexual Abuse: No Mistreated: No Fear: No Immunizations Up To Date Tetanus Booster (TDap): More than 5yrs Seasonal Allergies Seasonal Allergies: No Past Medical History Surgeries: Yes (URETHRAL DILATION, INGUINAL HERNIA) Respiratory: No Currently Using CPAP: No Currently Using BIPAP: No Cardiac: No Neurological: No Seizure Disorder Reproductive Disorders: No Sexually Transmitted Disease: No HIV/AIDS: No Genitourinary: Yes Prostate Problems Gastrointestinal: Yes Gastroesophageal Reflux Musculoskeletal: Yes Chronic Back Pain Endocrine: No HEENT: Yes Loss of Vision: Bilateral Hearing Impairment: Hard of Hearing Cancer: No Psychosocial: Yes Anxiety, Depression Integumentary: No Blood Disorders: No Adverse Reaction/Blood Tranf: No (N/A) Family Medical History Alcoholism 19 FATHER G8 BROTHER (alcoholism) Arthritis G8 BROTHER (gout) Diabetes mellitus 19 MOTHER (diabetic leg ulcers) Hypertension 19 MOTHER Neoplasm 19 FATHER (cancer of pancreas) Physical Exam Vital Signs Vital Signs - First Documented 12/23/18 19:23 Temp 98.2 Pulse 95 Resp 18 B/P (MAP) 119/82 (94) Pulse Ox 97 O2 Delivery Room Air Height, Weight, BMI Height: 5'11.00" Weight: 160lbs. 0oz. 72.383015dn; 21.6 BMI Method:Stated General Appearance: WD/WN, no apparent distress Eyes: bilateral eye normal inspection, bilateral eye PERRL, bilateral eye EOMI Ears: bilateral ear auricle normal, bilateral ear canal normal, bilateral ear TM normal Mouth/Throat: normal mouth inspection, pharynx normal Neck: non-tender, full range of motion Respiratory: no respiratory distress, no accessory muscle use Gastrointestinal: normal bowel sounds, non tender, soft Neurologic/Psychiatric: alert, normal mood/affect, oriented x 3 Skin: normal color, warm/dry Progress/Results/Core Measures Results/Orders My Orders Orders - PATEL MERCHANT APRN Chest Pa/Lat (2 View) (12/23/18 19:37) Dexamethasone Injection (Decadron Inject (12/23/18 19:45) Amoxicillin/Clavulanate Tablet (Augmenti (12/23/18 19:45) Vital Signs/I&O 12/23/18 19:23 Temp 98.2 Pulse 95 Resp 18 B/P (MAP) 119/82 (94) Pulse Ox 97 O2 Delivery Room Air Blood Pressure Mean: 94 Departure Impression Primary Impression: Sinusitis Qualified Codes: J01.10 - Acute frontal sinusitis, unspecified Disposition: 01 HOME, SELF-CARE Condition: Stable Departure-Patient Inst. Decision time for Depature: 19:46 Referrals: NO,LOCAL PHYSICIAN (PCP/Family) Primary Care Physician Patient Instructions: Sinusitis, Adult (DC) Scripts Amoxicillin (Amoxicillin) 500 Mg Capsule 1000 MG PO BID, #28 CAP 0 Refills Prov: PATEL MERCHANT APRN 12/23/18 PATEL MERCHANT APRN Dec 23, 2018 19:48
[2018-12-23 19:50] VITALS: BP 119/82
== END 2018-12-23 19:50 | disposition home or self-care (01) ==
LOC: EDUNIT# 19:20 → ER 19:22
DX: J32.9 Chronic sinusitis, unspecified (principal); G40.909 Epilepsy, unspecified, not intractable, without status epilepticus; K21.9 Gastro-esophageal reflux disease without esophagitis; F41.9 Anxiety disorder, unspecified; F32.9 Major depressive disorder, single episode, unspecified; F17.210 Nicotine dependence, cigarettes, uncomplicated; Z82.49 Family history of ischemic heart disease and other diseases of the circulatory system; Z80.0 Family history of malignant neoplasm of digestive organs
CPT/HCPCS: 71046; 96372

== ENCOUNTER 2019-11-06 18:15 | Emergency (ER) | payer SELFPAY ==
[~2019-11-06] VITALS: Ht 180 cm; Wt 72.7 kg
[2019-11-06 19:32] LABS: BILIRUBIN,URINE NEGATIVE (NEGATIVE); CLARITY,URINE CLEAR; COLOR,URINE YELLOW; GLUCOSE, URINE (UA) NEGATIVE (NEGATIVE); KETONES,URINE NEGATIVE (NEGATIVE); LEUKOCYTE ESTERASE ,URINE NEGATIVE (NEGATIVE); NITRITE,URINE NEGATIVE (NEGATIVE); PROTEIN,URINE NEGATIVE (NEGATIVE)
[2019-11-06 19:32] LABS: BASOPHILS % (AUTO) 0 % (0-10); EOSINOPHILS # (AUTO) 0.2 10^3/uL (0.0-0.3); EOSINOPHILS % (AUTO) 2 % (0-10); HEMATOCRIT 47 % (40-54); HEMOGLOBIN 15.8 G/DL (13.3-17.7); LYMPHOCYTES % (AUTO) 29 % (12-44); MEAN CORPUSCULAR HEMOGLOBIN 29 PG (25-34); MEAN CORPUSCULAR HGB CONC 34 G/DL (32-36); MEAN CORPUSCULAR VOLUME 87 FL (80-99); MEAN PLATELET VOLUME 9.6 FL (7.4-10.4); MONOCYTES # (AUTO) 0.6 X 10^3 (0.0-1.0); MONOCYTES % (AUTO) 9 % (0-12); NEUTROPHILS # (AUTO) 4.1 X 10^3 (1.8-7.8); NEUTROPHILS % (AUTO) 60 % (42-75); PLATELET COUNT 295 10^3/uL (130-400); RED CELL DISTRIBUTION WIDTH 13.6 % (10.0-14.5); WHITE BLOOD COUNT 6.8 10^3/uL (4.3-11.0)
[2019-11-06 19:42] LABS: ALBUMIN 4.2 GM/DL (3.2-4.5); CHLORIDE 104 MMOL/L (98-107); POTASSIUM 4.4 MMOL/L (3.6-5.0); SODIUM 139 MMOL/L (135-145)
[2019-11-06 19:43] LABS: CALCIUM 9.1 MG/DL (8.5-10.1)
[2019-11-06 19:45] LABS: GLUCOSE 95 MG/DL (70-105); TOTAL PROTEIN 7.1 GM/DL (6.4-8.2)
[2019-11-06 19:46] LABS: BILIRUBIN,TOTAL 0.3 MG/DL (0.1-1.0); CARBON DIOXIDE 25 MMOL/L (21-32)
[2019-11-06 19:48] LABS: ALKALINE PHOSPHATASE 65 U/L (40-136)
[2019-11-06 19:49] LABS: CREATININE SERUM 0.79 MG/DL (0.60-1.30); GFR ESTIMATED > 60
[2019-11-06 19:50] LABS: BUN/CREATININE RATIO 11
[2019-11-06 19:51] LABS: ALANINE AMINOTRANSFERASE 28 U/L (0-55)
[2019-11-06 19:52] LABS: LIPASE 29 U/L (8-78)
[2019-11-06 19:56] LABS: BACTERIA,URINE NEGATIVE /HPF; SQUAMOUS EPITHELIAL CELL,UR RARE /HPF
--- NOTE | 2019-11-06 20:34 | ED GI ---
General Chief Complaint: Abdominal/GI Problems Stated Complaint: STOMACH PAIN Nursing Triage Note: TO ED VIA POV AND AMBULATORY TO ROOM 6 WITH C/O STOMACH PROBLEMS FOR 2 WEEKS, BUT CANNOT GET INTO PCP UNTIL 11/12. C/O BLACK COLORED DIARRHEA, DENIES USE OF BLOOD THINNERS. Sepsis Screen: No Definite Risk Source of Information: Patient Exam Limitations: No Limitations History of Present Illness Date Seen by Provider: Nov 06, 2019 Time Seen by Provider: 18:54 Initial Comments This 59-year-old gentleman presents to the emergency room with complaints of generalized abdominal pain and melena (dark black stools) with diarrhea for about 2 weeks. He denies any fever, nausea, vomiting, or bright red stool per rectum. He denies alcohol use or drug use. Review of his chart notes a colonoscopy in 2015 with internal hemorrhoids. He also had inguinal hernia repair in 2015. He reports he also had endoscopy in [place] in 2006 he does not know the results of that. He has an appointment with his primary care provider, Kang Nobles, next week. Allergies and Home Medications Allergies Coded Allergies: No Known Drug Allergies (Unverified , 04/14/16) Patient Home Medication List Home Medication List Reviewed: Yes Review of Systems Review of Systems Constitutional: no symptoms reported EENTM: No Symptoms Reported Respiratory: No Symptoms Reported Cardiovascular: No Symptoms Reported Gastrointestinal: See HPI Genitourinary: No Symptoms Reported Musculoskeletal: no symptoms reported Skin: no symptoms reported Psychiatric/Neurological: See HPI Endocrine: No Symptoms Reported Hematologic/Lymphatic: No Symptoms Reported Past Yhmjqet-Jrdjcz-Qhidci Hx Past Med/Social Hx: Reviewed Nursing Past Med/Soc Hx Patient Social History Alcohol Use: Denies Use Recreational Drug Use: No Smoking Status: Current Everyday Smoker Type Used: Cigarettes 2nd Hand Smoke Exposure: No Recent Foreign Travel: No Contact w/Someone Who Travel: No Recent Infectious Disease Expo: No Recent Hopitalizations: No Physical Abuse: No Sexual Abuse: No Mistreated: No Fear: No Immunizations Up To Date Tetanus Booster (TDap): More than 5yrs Seasonal Allergies Seasonal Allergies: No Past Medical History Surgeries: Yes (URETHRAL DILATION, INGUINAL HERNIA, COLONOSCOPY 2016, HEMORROIDECTOMY) Abdominal (right inguinal hernia with, colonoscopy, hemorrhoids) Respiratory: No Currently Using CPAP: No Currently Using BIPAP: No Cardiac: No Neurological: Yes Seizure Disorder Reproductive Disorders: No Sexually Transmitted Disease: No HIV/AIDS: No Genitourinary: Yes Prostate Problems Gastrointestinal: Yes Gastroesophageal Reflux Musculoskeletal: Yes Chronic Back Pain Endocrine: No HEENT: Yes Loss of Vision: Bilateral Hearing Impairment: Hard of Hearing Cancer: No Psychosocial: Yes Anxiety, Depression Integumentary: No Blood Disorders: No Adverse Reaction/Blood Tranf: No (N/A) Family Medical History Reviewed Nursing Family Hx Alcoholism 19 FATHER G8 BROTHER (alcoholism) Arthritis G8 BROTHER (gout) Diabetes mellitus 19 MOTHER (diabetic leg ulcers) Hypertension 19 MOTHER Neoplasm 19 FATHER (cancer of pancreas) Physical Exam Vital Signs Vital Signs - First Documented 11/06/19 19:07 Temp 36.6 Pulse 74 Resp 16 B/P (MAP) 143/102 (116) O2 Delivery Room Air Capillary Refill : Less Than 3 Seconds Height/Weight/BMI Height: 5'11.00" Weight: 160lbs. 0oz. [id number]; 22.00 BMI Method:Stated General Appearance: WD/WN, no apparent distress HEENT: PERRL/EOMI, normal ENT inspection Neck: normal inspection Respiratory: lungs clear, normal breath sounds, no respiratory distress Cardiovascular: regular rate, rhythm, no edema, no murmur Gastrointestinal: normal bowel sounds, soft; No distended; tenderness (generalized) Extremities: normal inspection, no pedal edema Neurologic/Psychiatric: assembler caterpillar spider II-XII nml as tested, no motor/sensory deficits, alert, normal mood/affect, oriented x 3 Skin: normal color, warm/dry Progress/Results/Core Measures Results/Orders Lab Results Laboratory Tests Test 11/06/19 19:18 11/06/19 19:23 Range/Units White Blood Count 6.8 4.3-11.0 10^3/uL Red Blood Count 5.39 4.35-5.85 10^6/uL Hemoglobin 15.8 13.3-17.7 G/DL Hematocrit 47 40-54 % Mean Corpuscular Volume 87 80-99 FL Mean Corpuscular Hemoglobin 29 25-34 PG Mean Corpuscular Hemoglobin Concent 34 32-36 G/DL Red Cell Distribution Width 13.6 10.0-14.5 % Platelet Count 295 130-400 10^3/uL Mean Platelet Volume 9.6 7.4-10.4 FL Neutrophils (%) (Auto) 60 42-75 % Lymphocytes (%) (Auto) 29 12-44 % Monocytes (%) (Auto) 9 0-12 % Eosinophils (%) (Auto) 2 0-10 % Basophils (%) (Auto) 0 0-10 % Neutrophils # (Auto) 4.1 1.8-7.8 X 10^3 Lymphocytes # (Auto) 2.0 1.0-4.0 X 10^3 Monocytes # (Auto) 0.6 0.0-1.0 X 10^3 Eosinophils # (Auto) 0.2 0.0-0.3 10^3/uL Basophils # (Auto) 0.0 0.0-0.1 10^3/uL Sodium Level 139 135-145 MMOL/L Potassium Level 4.4 3.6-5.0 MMOL/L Chloride Level 104 98-107 MMOL/L Carbon Dioxide Level 25 21-32 MMOL/L Anion Gap 10 5-14 MMOL/L Blood Urea Nitrogen 9 7-18 MG/DL Creatinine 0.79 0.60-1.30 MG/DL Estimat Glomerular Filtration Rate > 60 BUN/Creatinine Ratio 11 Glucose Level 95 70-105 MG/DL Calcium Level 9.1 8.5-10.1 MG/DL Corrected Calcium 8.9 8.5-10.1 MG/DL Total Bilirubin 0.3 0.1-1.0 MG/DL Aspartate Amino Transf (AST/SGOT) 23 5-34 U/L Alanine Aminotransferase (ALT/SGPT) 28 0-55 U/L Alkaline Phosphatase 65 40-136 U/L C-Reactive Protein High Sensitivity 0.21 0.00-0.50 MG/DL Total Protein 7.1 6.4-8.2 GM/DL Albumin 4.2 3.2-4.5 GM/DL Lipase 29 8-78 U/L Serum Alcohol < 10 <10 MG/DL Urine Color YELLOW Urine Clarity CLEAR Urine pH 7.0 5-9 Urine Specific [place] 1.010 L 1.016-1.022 Urine Protein NEGATIVE NEGATIVE Urine Glucose (UA) NEGATIVE NEGATIVE Urine Ketones NEGATIVE NEGATIVE Urine Nitrite NEGATIVE NEGATIVE Urine Bilirubin NEGATIVE NEGATIVE Urine Urobilinogen 0.2 < = 1.0 MG/DL Urine Leukocyte Esterase NEGATIVE NEGATIVE Urine RBC (Auto) NEGATIVE NEGATIVE Urine RBC NONE /HPF Urine WBC NONE /HPF Urine Squamous Epithelial Cells RARE /HPF Urine Crystals NONE /LPF Urine Bacteria NEGATIVE /HPF Urine Casts NONE /LPF Urine Mucus NEGATIVE /LPF Urine Culture Indicated NO My Orders Orders - FRANCIA MCDOWELL MD Cbc With Automated Diff (11/06/19 18:54) Comprehensive Metabolic Panel (11/06/19 18:54) Hs C Reactive Protein (11/06/19 18:54) Lipase (11/06/19 18:54) Ua Culture If Indicated (11/06/19 18:54) Ed Iv/Invasive Line Start (11/06/19 18:54) Alcohol (11/06/19 19:24) Vital Signs/I&O 11/06/19 19:07 Temp 36.6 Pulse 74 Resp 16 B/P (MAP) 143/102 (116) O2 Delivery Room Air Blood Pressure Mean: 116 Progress Progress Note : Time: 20:28 Progress Note Labs were unremarkable. I discussed further options with the patient. I offered both the CT scan and a digital rectal exam to evaluate for rectal blood. He declines both at this time and prefers to follow-up with Kang Nobles his scheduled follow up in the week. In the meantime, he is advised to take an antacid medication daily. See discharge instructions. Departure Impression Primary Impression: Generalized abdominal pain Additional Impressions: Melena Diarrhea Qualified Codes: R19.7 - Diarrhea, unspecified Disposition: 01 HOME, SELF-CARE Condition: Improved Departure-Patient Inst. Decision time for Depature: 20:31 Referrals: [facility] (PCP/Family) Primary Care Physician Patient Instructions: Severe Abdominal Pain, Adult (DC) Add. Discharge Instructions: Drink a noncarbonated and nonalcoholic clear liquid diet for the next 24 hours. Then gradually advance your diet with small quantities of bland food as tolerated. Avoid the following until symptoms improve: Eating large meals, eating close to bedtime, alcohol, caffeine, carbonation, chocolate, citrus fruits and juices, tomato products, tobacco, spicy foods, fatty or greasy foods, milk products, NSAID medications such as ibuprofen or naproxen, mints, or anything else you know irritates your stomach. Take an antacid medication such as Pepcid (famotidine) 20 mg twice daily or omeprazole 20 mg twice daily. Do this consistently for at least one month even if your symptoms improve. These medications may be purchased [id number]. Keep your follow-up appointment at the clinic even if your symptoms improve. Return to the emergency room if you have worsening symptoms or develop new symptoms such as vomiting, fever, severe pain, etc. All discharge instructions reviewed with patient and/or family. Voiced understanding. Copy Copies To 1: RODNEY TALAVERA JOSHUA T MD Nov 06, 2019 20:34
[2019-11-06 20:37] VITALS: BP 151/90
--- OUTSIDE RECORDS SUMMARY | 2019-11-06 20:56 | XMS REPORT | Continuity of Care Document ---
Author Organization Unknown Address Unknown Phone Unavailable Allergies Active Description Code Type Severity Reaction Onset Reported/Identified Relationship to Patient Clinical Status Yes codeine [id number] Drug Allergy Unknown N/A 01/15/2015 Yes No Known Drug Allergies [id number] Drug Allergy Unknown N/A 04/14/2016 Medications There is no data. Problems Date Dx Coded Attending Type Code Diagnosis Diagnosed By 01/15/2015 PATEL MERCHANT APRN Ot 719.46 JOINT PAIN-L/LEG 03/03/2015 LILIBETH MARTINEZ MD Ot F10.129 ALCOHOL ABUSE WITH INTOXICATION, UNSPECI [...] LILIBETH MARTINEZ MD Ot R05 COUGH 03/11/2016 MARIBELL MORAN, EVELIA Hines Ot K62.5 HEMORRHAGE OF ANUS AND RECTUM 03/11/2016 MARIBELL MORAN, EVELIA Hines Ot Z01.818 ENCOUNTER FOR OTHER PREPROCEDURAL EXAMIN 03/13/2016 EVELIA REYNA MD Ot K62.5 HEMORRHAGE OF ANUS AND RECTUM 03/13/2016 EVELIA REYNA MD Ot Z01.818 ENCOUNTER FOR OTHER PREPROCEDURAL EXAMIN 03/16/2016 LILIBETH MARTINEZ MD Ot R05 COUGH 03/16/2016 EVELIA REYNA MD [...] INGUINAL HERNIA, W/O OBST OR GANGR, 10/01/2016 PATEL MERCHANT APRN Ot F17.210 NICOTINE DEPENDENCE, CIGARETTES, UNCOMPL 10/01/2016 PATEL MERCHANT OVERCOIL STEPPER Ot F41 .8 OTHER SPECIFIED ANXIETY DISORDERS 10/01/2016 PATEL MERCHANT OVERCOIL STEPPER Ot G40.909 EPILEPSY, UNSP, NOT INTRACTABLE, WITHOUT 10/01/2016 PATEL MERCHANT OVERCOIL STEPPER Ot R51 HEADACHE 10/01/2016 LILIBETH MARTINEZ MD Ot R05 COUGH 07/23/2017 ZIYAD HYDE MD Ot F17.210 NICOTINE DEPENDENCE, CIGARETTES, UNCOMPL 07/23/2017 ZIYAD HYDE MD Ot F32.9 MAJOR DEPRESSIVE DISORDER, SINGLE EPISOD 07/23/2017 ZIYAD HYDE MD Ot F41.9 ANXIETY DISORDER, UNSPECIFIED 07/23/2017 BARRETT MORAN, ZIYAD Linda Ot G40.909 EPILEPSY, UNSP, NOT INTRACTABLE, WITHOUT 07/23/2017 BARRETT MORAN, ZIYAD Linda Ot H92.02 OTALGIA, LEFT EAR 07/23/2017 BARRETT MORAN, ZIYAD Linda Ot J01.00 ACUTE MAXILLARY SINUSITIS, UNSPECIFIED 07/23/2017 BARRETT MORAN, ZIYAD Linda Ot K21.9 GASTRO-ESOPHAGEAL REFLUX DISEASE WITHOUT 07/23/2017 BARRETT MORAN, ZIYAD Linda Ot Z87.19 PERSONAL HISTORY OF OTHER DISEASES OF 07/24/2017 MICHELLE MORAN, LILIBETH Swenson Ot R05 COUGH 08/02/2017 MICHELLE MORAN, LILIBETH Swenson Ot R05 COUGH 09/02/2017 MICHELLE MORAN, LILIBETH Swenson Ot R05 COUGH 09/02/2017 MICHELLE MORAN, LILIBETH Swenson Ot R05 COUGH 09/24/2018 ILENE TAN Ot F17.210 NICOTINE DEPENDENCE, CIGARETTES, UNCOMPL 09/24/2018 ILENE TAN Ot F32.9 MAJOR DEPRESSIVE DISORDER, SINGLE EPISOD 09/24/2018 ILENE TAN Ot F41.9 ANXIETY DISORDER, UNSPECIFIED 09/24/2018 ILENE TAN Ot G40.909 EPILEPSY, UNSP, NOT INTRACTABLE, WITHOUT 09/24/2018 ILENE TAN Ot G47.9 SLEEP DISORDER, UNSPECIFIED 09/24/2018 ILENE TAN Ot K21.9 GASTRO-ESOPHAGEAL REFLUX DISEASE WITHOUT 09/24/2018 TANI TANIS Ot R53.1 WEAKNESS 09/24/2018 TANI TANIS Ot R53.83 OTHER FATIGUE 09/24/2018 ILENE TAN Ot Z80.0 FAMILY HISTORY OF MALIGNANT NEOPLASM OF 09/24/2018 ILENE TAN Ot Z98.890 OTHER SPECIFIED POSTPROCEDURAL STATES 09/28/2018 TANI TANIS Ot F17.210 NICOTINE DEPENDENCE, CIGARETTES, UNCOMPL 09/28/2018 ILENE TAN Ot F32.9 MAJOR DEPRESSIVE DISORDER, SINGLE EPISOD 09/28/2018 ILENE TAN Ot F41.9 ANXIETY DISORDER, UNSPECIFIED 09/28/2018 TANI TANIS Ot G40.909 EPILEPSY, UNSP, NOT INTRACTABLE, WITHOUT 09/28/2018 ILENE TAN Ot G47.9 SLEEP DISORDER, UNSPECIFIED 09/28/2018 BERNSEBLE ILENE Ot K21.9 GASTRO-ESOPHAGEAL REFLUX DISEASE WITHOUT 09/28/2018 BERNTANI PRUETTIS Ot R53.1 WEAKNESS 09/28/2018 BERNTANI PRUETTIS Ot R53.83 OTHER FATIGUE 09/28/2018 BERNTANI PRUETTIS Ot Z80.0 FAMILY HISTORY OF MALIGNANT NEOPLASM OF 09/28/2018 BRITNEY ILENE Ot Z98.890 OTHER SPECIFIED POSTPROCEDURAL STATES 12/29/2018 PATEL MERCHANT APRN Ot F17.210 NICOTINE DEPENDENCE, CIGARETTES, UNCOMPL 12/29/2018 PATEL MERCHANT APRN Ot F32 .9 MAJOR DEPRESSIVE DISORDER, SINGLE EPISOD 12/29/2018 PATEL MERCHANT APRN Ot F41 .9 ANXIETY DISORDER, UNSPECIFIED 12/29/2018 PATEL MERCHANT APRN Ot G40.909 EPILEPSY, UNSP, NOT INTRACTABLE, WITHOUT 12/29/2018 PATEL MERCHANT APRN Ot J32 .9 CHRONIC SINUSITIS, UNSPECIFIED 12/29/2018 PATEL MERCHANT APRN Ot K21 .9 GASTRO-ESOPHAGEAL REFLUX DISEASE WITHOUT 12/29/2018 PATEL MERCHANT APRN Ot R51 HEADACHE 12/29/2018 PATEL MERCHANT APRN Ot Z80 .0 FAMILY HISTORY OF MALIGNANT NEOPLASM OF 12/29/2018 PATEL MERCHANT APRN Ot Z82.49 FAMILY HX OF ISCHEM HEART DIS AND OTH DI 12/29/2018 PATEL MERCHANT APRN Ot F17.210 NICOTINE DEPENDENCE, CIGARETTES, UNCOMPL 12/29/2018 PATEL MERCHANT APRN Ot F32 .9 MAJOR DEPRESSIVE DISORDER, SINGLE EPISOD 12/29/2018 PATEL MERCHANT APRN Ot F41 .9 ANXIETY DISORDER, UNSPECIFIED 12/29/2018 PATEL MERCHANT APRN Ot G40.909 EPILEPSY, UNSP, NOT INTRACTABLE, WITHOUT 12/29/2018 PATEL MERCHANT APRN Ot J32 .9 CHRONIC SINUSITIS, UNSPECIFIED 12/29/2018 PATEL MERCHANT APRN Ot K21 .9 GASTRO-ESOPHAGEAL REFLUX DISEASE WITHOUT 12/29/2018 PATEL MERCHANT APRN Ot R51 HEADACHE 12/29/2018 PATEL MERCHANT APRN Ot Z80 .0 FAMILY HISTORY OF MALIGNANT NEOPLASM OF 12/29/2018 PATEL MERCHANT OVERCOIL STEPPER Ot Z82.49 FAMILY HX OF ISCHEM HEART DIS AND OTH DI Procedures There is no data. Results Test Result Range Complete blood count (CBC) with automate d white blood cell (WBC) differential - 04/14/16 09:45 Blood leukocytes automated count (number/volume) 9.1 10*3/uL 4.3-11.0 Blood erythrocytes automated count (number/volume) 5.70 10*6/uL 4.35-5.85 Venous blood hemoglobin measurement (mass/volume) 17.3 g/dL 13.3-17.7 Blood hematocrit (volume fraction) 51 % 40-54 Automated erythrocyte mean corpuscular volume 90 [ foz_us] 80-99 Automated erythrocyte mean corpuscular h emoglobin (mass per erythrocyte) 30 pg 25-34 Automated erythrocyte mean corpuscular h emoglobin concentration measurement (mass/volume) 34 g/dL 32-36 Automated erythrocyte distribution width ratio 12. 8 % 10.0- 14.5 Automated blood platelet count (count/volume) 217 10*3/uL [...] 10*3 1.0-4.0 Blood monocytes automated count (number/volume) 0. 8 10*3 0.0-1.0 Automated eosinophil count 0.2 10*3/uL 0 .0-0.3 Automated blood basophil count (count/volume) 0.0 10*3/uL 0.0-0.1 Methicillin resistant Staphylococcus aur eus (MRSA) screening culture - 04/14/16 09:45 Methicillin resistant Staphylococcus aureus (MRSA) scr eening culture NEG NRG Complete blood count (CBC) with automate d white blood cell (WBC) differential - 10/01/16 08:54 Blood leukocytes automated count (number/volume) 6.5 10*3/uL 4.3-11.0 Blood erythrocytes automated count (number/volume) 5.21 10*6/uL 4.35-5.85 Venous blood hemoglobin measurement (mass/volume) 15.8 g/dL 13.3-17.7 Blood hematocrit (volume fraction) 47 % 40-54 Automated erythrocyte mean corpuscular volume 90 [ foz_us] 80-99 Automated erythrocyte mean corpuscular h emoglobin (mass per erythrocyte) 30 pg 25-34 Automated erythrocyte mean corpuscular h emoglobin concentration measurement (mass/volume) 34 g/dL 32-36 Automated erythrocyte distribution width ratio 12. 9 % 10.0- 14.5 Automated blood platelet count (count/volume) 191 10*3/uL [...] 10*3 1.0-4.0 Blood monocytes automated count (number/volume) 0. 6 10*3 0.0-1.0 Automated eosinophil count 0.1 10*3/uL 0 .0-0.3 Automated blood basophil count (count/volume) 0.1 10*3/uL 0.0-0.1 Comprehensive metabolic panel - 10/01/16 08:54 Serum or plasma sodium measurement (moles/volume) 139 mmol/L 135-145 Serum or plasma potassium measurement (moles/volume) 4.6 mmol/L 3.6-5.0 Serum or plasma chloride measurement (moles/volume) 109 mmol/L 98-107 Carbon dioxide 20 mmol/L 21-32 Serum or plasma anion gap determination (moles/volume) 10 mmol/L 5-14 Serum or plasma urea nitrogen measurement (mass/volume ) 17 mg/dL 7-18 Serum or plasma creatinine measurement (mass/volume) 0.73 mg/dL 0.60-1.30 Serum or plasma urea nitrogen/creatinine mass ratio 23 0-20 Serum or plasma creatinine measurement w ith calculation of estimated glomerular filtration rate > NRG Serum or plasma glucose measurement (mass/volume) 82 mg/dL 70-105 Serum or plasma calcium measurement (mass/volume) 8.7 mg/dL 8.5-10.1 Serum or plasma total bilirubin measurement (mass/volu me) 0.4 mg/dL 0.1-1.0 Serum or plasma alkaline phosphatase dana surement (enzymatic activity/volume) 59 U/L 40-136 Serum or plasma aspartate aminotransfera se measurement (enzymatic activity/volume) 19 U/L 5-34 Serum or plasma alanine aminotransferase measurement (enzymatic activity/volume) 15 U/L 0-55 Serum or plasma protein measurement (mass/volume) 6.3 g/dL 6.4-8.2 Serum or plasma albumin measurement (mass/volume) 4.1 g/dL 3.2-4.5 Complete blood count (CBC) with automate d white blood cell (WBC) differential - 09/24/18 15:54 Blood leukocytes automated count (number/volume) 7.9 10*3/uL 4.3-11.0 Blood erythrocytes automated count (number/volume) 4.95 10*6/uL 4.35-5.85 Venous blood hemoglobin measurement (mass/volume) 14.5 g/dL 13.3-17.7 Blood hematocrit (volume fraction) 44 % 40-54 Automated erythrocyte mean corpuscular volume 89 [ foz_us] 80-99 Automated erythrocyte mean corpuscular h emoglobin (mass per erythrocyte) 29 pg 25-34 Automated erythrocyte mean corpuscular h emoglobin concentration measurement (mass/volume) 33 g/dL 32-36 Automated erythrocyte distribution width ratio 14. 1 % 10.0- 14.5 Automated blood platelet count (count/volume) 268 10*3/uL 130-400 Automated blood platelet mean volume measurement 10.2 [foz_us] 7.4-10.4 Automated blood neutrophils/100 leukocytes 54 % 42-75 Automated blood lymphocytes/100 leukocytes 36 % 12-44 Blood monocytes/100 leukocytes 7 % 0-12 Automated blood eosinophils/100 leukocytes 2 % 0-10 Automated blood basophils/100 leukocytes 0 % 0-10 Blood neutrophils automated count (number/volume) 4.3 10*3 1.8-7.8 Blood lymphocytes automated count (number/volume) 2.9 10*3 1.0-4.0 Blood monocytes automated count (number/volume) 0. 5 10*3 0.0-1.0 Automated eosinophil count 0.2 10*3/uL 0 .0-0.3 Automated blood basophil count (count/volume) 0.0 10*3/uL 0.0-0.1 Comprehensive metabolic panel - 09/24/18 15:54 Serum or plasma sodium measurement (moles/volume) 138 mmol/L 135-145 Serum or plasma potassium measurement (moles/volume) 3.9 mmol/L 3.6-5.0 Serum or plasma chloride measurement (moles/volume) 103 mmol/L 98-107 Carbon dioxide 23 mmol/L 21-32 Serum or plasma anion gap determination (moles/volume) 12 mmol/L 5-14 Serum or plasma urea nitrogen measurement (mass/volume ) 9 mg/dL 7-18 Serum or plasma creatinine measurement (mass/volume) 0.85 mg/dL 0.60-1.30 Serum or plasma urea nitrogen/creatinine mass ratio 11 NRG Serum or plasma creatinine measurement w ith calculation of estimated glomerular filtration rate > NRG Serum or plasma glucose measurement (mass/volume) 138 mg/dL 70-105 Serum or plasma calcium measurement (mass/volume) 9.2 mg/dL 8.5-10.1 Serum or plasma total bilirubin measurement (mass/volu me) 0.2 mg/dL 0.1-1.0 Serum or plasma alkaline phosphatase dana surement (enzymatic activity/volume) 78 U/L 40-136 Serum or plasma aspartate aminotransfera se measurement (enzymatic activity/volume) 25 U/L 5-34 Serum or plasma alanine aminotransferase measurement (enzymatic activity/volume) 33 U/L 0-55 Serum or plasma protein measurement (mass/volume) 6.8 g/dL 6.4-8.2 Serum or plasma albumin measurement (mass/volume) 4.1 g/dL 3.2-4.5 CALCIUM CORRECTED 9.1 mg/dL 8.5-10.1 Tick identification panel - 09/24/18 15: 54 Serum Ehrlichia chaffeensis IgG antibody detection 1:128 <1:16 Serum Ehrlichia chaffeensis IgM antibody detection <1:10 <1:10 Serum Rickettsia rickettsii IgG antibody assay (units/ volume) <1:16 [place] spotted fever panel < <1:10 Francisella tularensis antibody assay <1:20 NRG LYME AB G M 0.05 % 0.00-0.89 Interpretation of Lyme disease antibody assay Nega tive Negative Complete blood count (CBC) with automate d white blood cell (WBC) differential - 11/06/19 19:18 Blood leukocytes automated count (number/volume) 6.8 10*3/uL 4.3-11.0 Blood erythrocytes automated count (number/volume) 5.39 10*6/uL 4.35-5.85 Venous blood hemoglobin measurement (mass/volume) 15.8 g/dL 13.3-17.7 Blood hematocrit (volume fraction) 47 % 40-54 Automated erythrocyte mean corpuscular volume 87 [ foz_us] 80-99 Automated erythrocyte mean corpuscular h emoglobin (mass per erythrocyte) 29 pg 25-34 Automated erythrocyte mean corpuscular h emoglobin concentration measurement (mass/volume) 34 g/dL 32-36 Automated erythrocyte distribution width ratio 13. 6 % 10.0- 14.5 Automated blood platelet count (count/volume) 295 10*3/uL 130-400 Automated blood platelet mean volume measurement 9.6 [foz_us] 7.4-10.4 Automated blood neutrophils/100 leukocytes 60 % 42-75 Automated blood lymphocytes/100 leukocytes 29 % 12-44 Blood monocytes/100 leukocytes 9 % 0-12 Automated blood eosinophils/100 leukocytes 2 % 0-10 Automated blood basophils/100 leukocytes 0 % 0-10 Blood neutrophils automated count (number/volume) 4.1 10*3 1.8-7.8 Blood lymphocytes automated count (number/volume) 2.0 10*3 1.0-4.0 Blood monocytes automated count (number/volume) 0. 6 10*3 0.0-1.0 Automated eosinophil count 0.2 10*3/uL 0 .0-0.3 Automated blood basophil count (count/volume) 0.0 10*3/uL 0.0-0.1 Comprehensive metabolic panel - 11/06/19 19:18 Serum or plasma sodium measurement (moles/volume) 139 mmol/L 135-145 Serum or plasma potassium measurement (moles/volume) 4.4 mmol/L 3.6-5.0 Serum or plasma chloride measurement (moles/volume) 104 mmol/L 98-107 Carbon dioxide 25 mmol/L 21-32 Serum or plasma anion gap determination (moles/volume) 10 mmol/L 5-14 Serum or plasma urea nitrogen measurement (mass/volume ) 9 mg/dL 7-18 Serum or plasma creatinine measurement (mass/volume) 0.79 mg/dL 0.60-1.30 Serum or plasma urea nitrogen/creatinine mass ratio 11 NRG Serum or plasma creatinine measurement w ith calculation of estimated glomerular filtration rate > NRG Serum or plasma glucose measurement (mass/volume) 95 mg/dL 70-105 Serum or plasma calcium measurement (mass/volume) 9.1 mg/dL 8.5-10.1 Serum or plasma total bilirubin measurement (mass/volu me) 0.3 mg/dL 0.1-1.0 Serum or plasma alkaline phosphatase dana surement (enzymatic activity/volume) 65 U/L 40-136 Serum or plasma aspartate aminotransfera se measurement (enzymatic activity/volume) 23 U/L 5-34 Serum or plasma alanine aminotransferase measurement (enzymatic activity/volume) 28 U/L 0-55 Serum or plasma protein measurement (mass/volume) 7.1 g/dL 6.4-8.2 Serum or plasma albumin measurement (mass/volume) 4.2 g/dL 3.2-4.5 CALCIUM CORRECTED 8.9 mg/dL 8.5-10.1 Lipase - 11/06/19 19:18 Lipase 29 U/L 8-78 Serum or plasma C reactive protein measu rement (mass/volume) - 11/06/19 19:18 Serum or plasma C reactive protein measurement (mass/v olume) 0.21 mg/dL 0.00-0.50 Serum or plasma ethanol measurement (mas s/volume) - 11/06/19 19:18 Serum or plasma ethanol measurement (mass/volume) < mg/dL <10 Complete urinalysis with reflex to cultu re - 11/06/19 19:23 Urine color determination YELLOW NRG Urine clarity determination CLEAR NR G Urine pH measurement by test strip 7.0 5-9 Specific gravity of urine by test strip 1.010 1.016-1.022 Urine protein assay by test strip, semi-quantitative NEGATIVE NEGATIVE Urine glucose detection by automated test strip NE GATIVE NEGATIVE Erythrocytes detection in urine sediment by light micr oscopy NEGATIVE NEGATIVE Urine ketones detection by automated test strip NE GATIVE NEGATIVE Urine nitrite detection by test strip NEGATIVE NEGATIVE Urine total bilirubin detection by test strip NEGA TIVE NEGATIVE Urine urobilinogen measurement by automated test strip (mass/volume) 0.2 mg/dL < = 1.0 Urine leukocyte esterase detection by dipstick NEG ATIVE NEGATIVE Automated urine sediment erythrocyte cou nt by microscopy (number/high power field) NONE NRG Automated urine sediment leukocyte count by microscopy (number/high power field) NONE NRG Bacteria detection in urine sediment by light microsco py NEGATIVE NRG Squamous epithelial cells detection in u rine sediment by light microscopy RARE NRG Crystals detection in urine sediment by light microsco py NONE NRG Casts detection in urine sediment by light microscopy NONE NRG Mucus detection in urine sediment by light microscopy NEGATIVE NRG Complete urinalysis with reflex to culture NO NRG Encounters ACCT No. Visit Date/Time Discharge Status Pt. Type Provider Facility Loc./Unit Complaint [id number] 09/16/2017 10:50:00 09/16/2017 23:59: 59 [facility] [id number] 12/23/2018 19:22:00 019 19:50:00 DIS Outpatient PATEL MERCHANT APRN [facility] ER HEADACHE / COUGH [id number] 09/24/2018 15:34:00 019 17:01:00 DIS Emergency ILENE TAN [facility] ER TICK BITES, LFT ARM PIT , BELLY BUTTON,FEELING WEEK [id number] 07/23/2017 13:38:00 018 15:04:00 DIS Emergency BARRETT MORAN, ZIYAD Linda [facility] ER LEFT EAR PAIN [id number] 10/01/2016 07:58:00 017 11:30:00 DIS Emergency PATEL MERCHANT APRN [facility] ER HEADACHE/DIZZINESS/NAUS EA [id number] 04/17/2016 10:53:00 016 17:15:00 DIS [facility] [id number] 04/14/2016 09:21:00 13:34:00 DIS Outpatient MARIBELL MORAN, EVELIA Hines [facility] PREOP RIGHT INGUINAL HERNIA [id number] 03/16/2016 09:56:00 13:05:00 DIS Outpatient MARIBELL MORAN, EVELIA Hines [facility] SDC RECTAL BLEEDING [id number] 03/11/2016 05:43:00 13:58:00 DIS Outpatient MARIBELL MORAN, EVELIA Hines [facility] PREOP RECTAL BLEEDING [id number] 12/03/2015 17:55:00 23:59:59 CLS Outpatient MICHELLE MORAN, LILIBETH Swenson [facility] RAD COUGH [id number] 05/10/2015 11:22:00 23:59:59 CLS Emergency ADONIS MORAN, RELL Sahni [facility] ER CHEST PAIN [id number] 03/02/2015 20:50:00 015 10:00:00 DIS Inpatient MICHELLE MORAN, LILIBETH Swenson [facility] ICU ALTERED MENTAL STATUS; ETOH INTOXICATION [id number] 01/15/2015 18:21:00 015 19:20:00 DIS Emergency PATEL MERCHANT APRN [facility] ER L KNEE PAIN [id number] 11/06/2019 19:33:00 Document Registration
== END 2019-11-06 20:39 | disposition home or self-care (01) ==
LOC: EDUNIT# 18:15 → ER 18:16
DX: R10.84 Generalized abdominal pain (principal); K92.1 Melena; R19.7 Diarrhea, unspecified; F17.210 Nicotine dependence, cigarettes, uncomplicated; Z82.49 Family history of ischemic heart disease and other diseases of the circulatory system; Z80.0 Family history of malignant neoplasm of digestive organs
CPT/HCPCS: 80053; 81000; 83690; 85025; 86141; 99284; G0480; 36415; 80320

== ENCOUNTER 2021-02-07 19:29 | Emergency (ER) | payer SELFPAY ==
[~2021-02-07] VITALS: Ht 180 cm; Wt 73.0 kg
--- NOTE | 2021-02-07 19:40 | ED Neurological Problem ---
General Chief Complaint: Neurological Problems Stated Complaint: CONFUSION/FACIAL DROOPING Source: patient, family Exam Limitations: no limitations History of Present Illness Date Seen by Provider: Feb 07, 2021 Time Seen by Provider: 19:30 Initial Comments 60-year-old male with past medical history of hypertension and tobacco use comi ng in due to 3 days of intermittent confusion and his believing his lip was drooping slightly earlier as well. He attributes this to starting his Wellbutrin roughly 3 days ago when the symptoms started. Says the confusion is mostly every once while having difficulty finding certain words he wants to stay. Nothing like this is ever happened before. Denies any previous history of stroke, cardiac history, or any other concerns. Does not take any other medications daily. Allergies and Home Medications Allergies Coded Allergies: No Known Drug Allergies (Unverified , 04/14/16) Patient Home Medication List Home Medication List Reviewed: Yes Review of Systems Review of Systems Constitutional: No chills, No fever Eyes: Denies Blurred Vision Ears, Nose, Mouth, Throat: no symptoms reported Respiratory: No cough Cardiovascular: No chest pain Gastrointestinal: No abdominal pain, No diarrhea, No nausea, No vomiting Genitourinary: no symptoms reported Musculoskeletal: no symptoms reported Skin: no symptoms reported Psychiatric/Neurological: Denies Headache, Denies Numbness, Denies Tingling, Denies Weakness Endocrine: No Symptoms Reported Hematologic/Lymphatic: No Symptoms Reported All Other Systems Reviewed Negative Unless Noted: Yes Past Yaeiiph-Pzmlvu-Rerfea Hx Patient Social History Tobacco Use?: Yes Tobacco type used: Cigarettes Substance use?: No Alcohol Use?: No Immunizations Up To Date Tetanus Booster (TDap): More than 5yrs First/Initial COVID19 Vaccinat: 09/06 Second COVID19 Vaccination Alonzo: 10/07 Seasonal Allergies Seasonal Allergies: No Past Medical History Surgery/Hospitalization HX: HTN,COPD, ANX Surgeries: Yes (URETHRAL DILATION, INGUINAL HERNIA, COLONOSCOPY 2016, HEMORROIDECTOMY) Abdominal Respiratory: No Currently Using CPAP: No Currently Using BIPAP: No Cardiac: No Neurological: Yes Seizure Disorder Reproductive Disorders: No Sexually Transmitted Disease: No HIV/AIDS: No Genitourinary: Yes Prostate Problems Gastrointestinal: Yes Gastroesophageal Reflux Musculoskeletal: Yes Chronic Back Pain Endocrine: No HEENT: Yes Loss of Vision: Bilateral Hearing Impairment: Hard of Hearing Cancer: No Psychosocial: Yes Anxiety, Depression Integumentary: No Blood Disorders: No Adverse Reaction/Blood Tranf: No (N/A) Family Medical History Alcoholism 19 FATHER G8 BROTHER (alcoholism) Arthritis G8 BROTHER (gout) Diabetes mellitus 19 MOTHER (diabetic leg ulcers) Hypertension 19 MOTHER Neoplasm 19 FATHER (cancer of pancreas) Physical Exam Vital Signs Vital Signs - First Documented 02/07/21 19:32 Temp 35.7 Pulse 86 Resp 16 B/P (MAP) 166/90 (115) Pulse Ox 99 O2 Delivery Room Air Capillary Refill : Height, Weight, BMI Height: 5'11.00" Weight: 160lbs. 0oz. 72.100341tg; 22.00 BMI Method:Stated General Appearance: WD/WN, no apparent distress HEENT: normal ENT inspection, pharynx normal Neck: non-tender, full range of motion, supple, normal inspection Respiratory: chest non-tender, lungs clear, normal breath sounds, no respiratory distress, no accessory muscle use Cardiovascular: regular rate, rhythm, no edema, no murmur Gastrointestinal: normal bowel sounds, non tender, soft; No distended, No guarding, No rebound Back: normal inspection, no CVA tenderness, no vertebral tenderness Extremities: normal range of motion, non-tender, normal inspection, no pedal edema, no calf tenderness, normal capillary refill Neurologic/Psychiatric: vocational instructor II-XII nml as tested, no motor/sensory deficits, alert, normal mood/affect, oriented x 3; No abnormal cerebellar tests, No abnormal gait, No aphasia, No facial droop Crainal Nerves: normal hearing, normal speech, PERRL Coordination/Gait: normal finger to nose, normal gait, negative Romberg's sign, other (normal heel to parisi) Motor/Sensory: no motor deficit, no sensory deficit, no pronator drift Skin: normal color, warm/dry Lymphatic: no adenopathy Stroke Onset of Symptoms Date of Onset of Symptoms: Feb 04, 2021 Time of Symptom Onset: 08:00 Onset of Symptoms: Yes Symptoms onset unknown: No NIH Stroke Scale Assessment Select: Initial Level of Consciousness: 0=Alert (0), LOC Commands: 0=Performs both tasks (0), Gaze: Normal (0), Visual Tabares: 0=No visual loss (0), Facial Movement (Facial Paresis): 0=Normal symmetrical mnt (0), Motor Function-Arms Right: 0=No drift (0), Motor Function-Arms Left: 0=No drift (0), Motor Function-Legs Right: 0=No drift (0), Motor Function-Legs Left: 0=No drift (0), Limb Ataxia: 0=Absent (0), Sensory: 0=Normal:no loss (0), Best Language: 0=No aphasia (0), Dysarthria: 0=Normal (0), Extinction & Inattention: 0=No abnormality (0), Total: 0 Stroke Thrombolytic Exclusion TPA Contraindication: Yes IV - TPa Received IV - TPa Procedure Performed?: No Progress/Results/Core Measures Results/Orders Lab Results Laboratory Tests Test 02/07/21 19:47 02/07/21 19:51 02/07/21 20:56 Range/Units White Blood Count 7.4 4.3-11.0 10^3/uL Red Blood Count 4.91 4.30-5.52 10^6/uL Hemoglobin 14.6 13.3-17.7 g/dL Hematocrit 45 40-54 % Mean Corpuscular Volume 91 80-99 fL Mean Corpuscular Hemoglobin 30 25-34 pg Mean Corpuscular Hemoglobin Concent 33 32-36 g/dL Red Cell Distribution Width 13.2 10.0-14.5 % Platelet Count 249 130-400 10^3/uL Mean Platelet Volume 9.9 9.0-12.2 fL Immature Granulocyte % (Auto) 0 % Neutrophils (%) (Auto) 54 42-75 % Lymphocytes (%) (Auto) 31 12-44 % Monocytes (%) (Auto) 10 0-12 % Eosinophils (%) (Auto) 4 0-10 % Basophils (%) (Auto) 1 0-10 % Neutrophils # (Auto) 4.0 1.8-7.8 10^3/uL Lymphocytes # (Auto) 2.3 1.0-4.0 10^3/uL Monocytes # (Auto) 0.7 0.0-1.0 10^3/uL Eosinophils # (Auto) 0.3 0.0-0.3 10^3/uL Basophils # (Auto) 0.1 0.0-0.1 10^3/uL Immature Granulocyte # (Auto) 0.0 0.0-0.1 10^3/uL Prothrombin Time 13.5 12.2-14.7 SEC INR Comment 1.0 0.8-1.4 Activated Partial Thromboplast Time 29 24-35 SEC Sodium Level 139 135-145 MMOL/L Potassium Level 3.9 3.6-5.0 MMOL/L Chloride Level 103 98-107 MMOL/L Carbon Dioxide Level 23 21-32 MMOL/L Anion Gap 13 5-14 MMOL/L Blood Urea Nitrogen 9 7-18 MG/DL Creatinine 0.87 0.60-1.30 MG/DL Estimat Glomerular Filtration Rate 90 BUN/Creatinine Ratio 10 Glucose Level 123 H 70-105 MG/DL Calcium Level 9.4 8.5-10.1 MG/DL Corrected Calcium 9.3 8.5-10.1 MG/DL Total Bilirubin 0.3 0.1-1.0 MG/DL Aspartate Amino Transf (AST/SGOT) 16 5-34 U/L Alanine Aminotransferase (ALT/SGPT) 23 0-55 U/L Alkaline Phosphatase 79 40-136 U/L Troponin I < 0.028 <0.028 NG/ML Total Protein 7.1 6.4-8.2 GM/DL Albumin 4.1 3.2-4.5 GM/DL Glucometer 122 H 70-110 MG/DL Urine Color YELLOW Urine Clarity CLEAR Urine pH 6.0 5-9 Urine Specific [place] >=1.030 1.016-1.022 Urine Protein NEGATIVE NEGATIVE Urine Glucose (UA) NEGATIVE NEGATIVE Urine Ketones NEGATIVE NEGATIVE Urine Nitrite NEGATIVE NEGATIVE Urine Bilirubin NEGATIVE NEGATIVE Urine Urobilinogen 0.2 < = 1.0 MG/DL Urine Leukocyte Esterase NEGATIVE NEGATIVE Urine RBC (Auto) NEGATIVE NEGATIVE Urine RBC NONE /HPF Urine WBC RARE /HPF Urine Squamous Epithelial Cells RARE /HPF Urine Crystals NONE /LPF Urine Bacteria NEGATIVE /HPF Urine Casts NONE /LPF Urine Mucus SMALL H /LPF Urine Culture Indicated NO My Orders Orders - HEIDI GALLO MD Cbc With Automated Diff (02/07/21 19:40) Protime With Inr (02/07/21 19:40) Partial Thromboplastin Time (02/07/21 19:40) Comprehensive Metabolic Panel (02/07/21 19:40) Troponin I (02/07/21 19:40) Ua Culture If Indicated (02/07/21 19:40) Chest 1 View, Ap/Pa Only (02/07/21 19:40) Ekg Tracing (02/07/21 19:40) Accucheck Stat ONCE (02/07/21 19:40) Ed Iv/Invasive Line Start (02/07/21 19:40) Vital Signs Stroke Patient Q15M (02/07/21 19:40) Ct Head Wo-R/O Stroke (02/07/21 19:40) O2 (02/07/21 19:40) Monitor-Rhythm Ecg Trace Only (02/07/21 19:40) Dysphagia Screening Tool (02/07/21 19:40) Aspirin Chewable Tablet (Baby Aspirin Ch (02/07/21 20:30) Medications Given in ED Current Medications Medications Dose Ordered Sig/Anibal Route Start Time Stop Time Status Last Admin Dose Admin Aspirin 324 mg ONCE ONCE PO 02/07/21 20:30 02/07/21 20:32 DC 02/07/21 20:33 324 MG Vital Signs/I&O 02/07/21 19:32 Temp 35.7 Pulse 86 Resp 16 B/P (MAP) 166/90 (115) Pulse Ox 99 O2 Delivery Room Air Progress Progress Note : Progress Note 60-year-old male with above history coming in due to 3 days of intermittent confusion and his stating at the same time she felt like his lip was drooping but not currently. She said it was very subtle droop that she really had a hard time telling. ABCs were intact and vitals were stable on presentation. He is alert and oriented, neuro exam is completely normal, and age stroke scale is 0. He is not having word finding difficulties and is not having any facial droop on my exam. As always possible he had a TIA, but this story seems kind of inconsistent. CT head without acute findings. CXR normal. Labs unremarkable including normal electrolytes, normal creatinine, negative trop, and normal UA. EKG sinus rhythm without concerning findings. ABCD2 score is 3 making him low risk for stroke in the next 90 days. Gave him full dose aspirin here and will start him on baby aspirin daily. Will refer him as outpatient for further management and risk adjustment with meds if PCP deems necessary. Given the patient is at his baseline, has been at his baseline entirety in the ER with frequent reassessment, I believe he is stable for discharge. He was sent home with strict return precautions. Initial ECG Impression Date: Feb 07, 2021 Initial ECG Impression Time: 19:45 Initial ECG Rate: 79 Initial ECG Rhythm: Normal Sinus Comment Narrow QRS, borderline left axis deviation, no significant ST changes or T wave abnormalities Diagnostic Imaging Diagonstic Imaging: CT Plain Films/CT/US/NM/MRI: head Comments CT head ordered and interpreted by me without any obvious large bleed or large mass. CT Results/Progress Notes PT STATUS: REG ER : 1960 PHYSICIAN: HEIDI GALLO MD ADMIT DATE: 02/07/21/ER Draft Date of Exam:02/07/21 CT HEAD WO-R/O STROKE PROCEDURE: CT head w/o r/o stroke. TECHNIQUE: Multiple contiguous axial images were obtained through the brain without the use of intravenous contrast. Auto Exposure Controls were utilized during the CT exam to meet ALARA standards for radiation dose reduction. INDICATION: Slurred speech, weakness and confusion. Evaluate for stroke. COMPARISON: Prior CT of the head from October 01, 2016. FINDINGS: There is no CT finding of acute intracranial hemorrhage. There is no intracranial mass effect or shift. There is no hydrocephalus. There is no abnormal extra-axial collection and the basilar cisterns appear patent. There is no CT finding of territorial loss of garrett-white differentiation. There is no evidence of vasogenic edema. There is no abnormal low density evident within the basal ganglia or within the leroy. No focal hyperdense blood vessel is evident. The mastoids and middle ears appear clear. Paranasal sinuses are clear, where visualized. Orbital contents unremarkable. There is no acute calvarial abnormality. IMPRESSION: 1. No CT finding of territorial loss of garrett-white differentiation or vasogenic edema. There are no findings of low density in the basal ganglia. 2. No hemorrhage, mass effect or hydrocephalus. 3. No evidence of a focal hyperdense blood vessel. Dictated on workstation # [id number] Dict: 02/07/212003 Trans: 02/07/212010 PJE [id number] Interpreted by: LANIE PLAZA MD Electronically signed by: Departure Impression Primary Impression: Altered mental status Qualified Codes: R41.82 - Altered mental status, unspecified Disposition: 01 HOME, SELF-CARE Condition: Stable Departure-Patient Inst. Decision time for Depature: 21:12 Referrals: [facility] (PCP/Family) Primary Care Physician Patient Instructions: Transient Ischemic Attack (DC) Add. Discharge Instructions: Is possible you had a TIA or transient ischemic attack. This is like a mini version of a stroke and can mean that you have risk factors for having a stroke in the future that would be big. I would like you to begin taking baby aspirin daily which is 81 mg. I would like you to follow-up with your primary care doctor within the next week or so to see if there are medications they can put you on to help lower the risk of stroke. You may also need further work-up such as an echo of your heart or an ultrasound of the carotid arteries in your neck. These would be things your primary care doctor can decide. If you have any weakness on one side of your body, numbness on one side of your body, inability to speak, facial drooping, or any other concerns and come back to the ER. All discharge instructions reviewed with patient and/or family. Voiced understanding. HEIDI GALLO MD Feb 07, 2021 19:40
[2021-02-07 19:54] LABS: BASOPHILS # (AUTO) 0.1 10^3/uL (0.0-0.1); BASOPHILS % (AUTO) 1 % (0-10); EOSINOPHILS # (AUTO) 0.3 10^3/uL (0.0-0.3); EOSINOPHILS % (AUTO) 4 % (0-10); HEMATOCRIT 45 % (40-54); HEMOGLOBIN 14.6 g/dL (13.3-17.7); LYMPHOCYTES # (AUTO) 2.3 10^3/uL (1.0-4.0); LYMPHOCYTES % (AUTO) 31 % (12-44); MEAN CORPUSCULAR HEMOGLOBIN 30 pg (25-34); MEAN CORPUSCULAR HGB CONC 33 g/dL (32-36); MEAN CORPUSCULAR VOLUME 91 fL (80-99); MEAN PLATELET VOLUME 9.9 fL (9.0-12.2); MONOCYTES # (AUTO) 0.7 10^3/uL (0.0-1.0); MONOCYTES % (AUTO) 10 % (0-12); NEUTROPHILS % (AUTO) 54 % (42-75); PLATELET COUNT 249 10^3/uL (130-400); WHITE BLOOD COUNT 7.4 10^3/uL (4.3-11.0)
[2021-02-07 20:06] LABS: PROTHROMBIN TIME PATIENT 13.5 SEC (12.2-14.7)
--- NOTE | 2021-02-07 20:11 | Diagnostic Imaging Report ---
PROCEDURE: CT head w/o r/o stroke. TECHNIQUE: Multiple contiguous axial images were obtained through the brain without the use of intravenous contrast. Auto Exposure Controls were utilized during the CT exam to meet ALARA standards for radiation dose reduction. INDICATION: Slurred speech, weakness and confusion. Evaluate for stroke. COMPARISON: Prior CT of the head from October 01, 2016. FINDINGS: There is no CT finding of acute intracranial hemorrhage. There is no intracranial mass effect or shift. There is no hydrocephalus. There is no abnormal extra-axial collection and the basilar cisterns appear patent. There is no CT finding of territorial loss of garrett-white differentiation. There is no evidence of vasogenic edema. There is no abnormal low density evident within the basal ganglia or within the leroy. No focal hyperdense blood vessel is evident. The mastoids and middle ears appear clear. Paranasal sinuses are clear, where visualized. Orbital contents unremarkable. There is no acute calvarial abnormality. IMPRESSION: 1. No CT finding of territorial loss of garrett-white differentiation or vasogenic edema. There are no findings of low density in the basal ganglia. 2. No hemorrhage, mass effect or hydrocephalus. 3. No evidence of a focal hyperdense blood vessel. Dictated by: Dictated on workstation # [id number]
--- NOTE | 2021-02-07 20:13 | Diagnostic Imaging Report ---
INDICATION: Altered mental status. COMPARISON: 05/10/2015. FINDINGS: The lungs appear clear without focal infiltrate or consolidation. There are no findings of an effusion. There is no evidence of a pneumothorax. Heart size and mediastinal contours appear appropriate. Pulmonary vascularity appears within normal limits. There is no acute or suspicious osseous abnormality demonstrated. IMPRESSION: No radiographic evidence of an acute cardiopulmonary process. Dictated by: Dictated on workstation # [id number]
[2021-02-07 20:18] LABS: ALANINE AMINOTRANSFERASE 23 U/L (0-55); ALBUMIN 4.1 GM/DL (3.2-4.5); ALKALINE PHOSPHATASE 79 U/L (40-136); BILIRUBIN,TOTAL 0.3 MG/DL (0.1-1.0); BUN/CREATININE RATIO 10; CALCIUM 9.4 MG/DL (8.5-10.1); CARBON DIOXIDE 23 MMOL/L (21-32); CHLORIDE 103 MMOL/L (98-107); CREATININE SERUM 0.87 MG/DL (0.60-1.30); GFR ESTIMATED 90; GLUCOSE 123 MG/DL (70-105); POTASSIUM 3.9 MMOL/L (3.6-5.0); SODIUM 139 MMOL/L (135-145); TOTAL PROTEIN 7.1 GM/DL (6.4-8.2)
[2021-02-07] MEDS ORDERED: ASPIRIN 81 MG CHEW (CHILDREN'S ASA) PO ONE (20:30)
[2021-02-07 21:02] LABS: BILIRUBIN,URINE NEGATIVE (NEGATIVE); CLARITY,URINE CLEAR; COLOR,URINE YELLOW; GLUCOSE, URINE (UA) NEGATIVE (NEGATIVE); KETONES,URINE NEGATIVE (NEGATIVE); LEUKOCYTE ESTERASE ,URINE NEGATIVE (NEGATIVE); NITRITE,URINE NEGATIVE (NEGATIVE); PROTEIN,URINE NEGATIVE (NEGATIVE)
[2021-02-07 21:08] LABS: BACTERIA,URINE NEGATIVE /HPF; SQUAMOUS EPITHELIAL CELL,UR RARE /HPF; WBC,URINE RARE /HPF
[2021-02-07 21:14] VITALS: BP 123/78
== END 2021-02-07 21:17 | disposition home or self-care (01) ==
LOC: EDUNIT# 19:29 → ER 19:31
DX: R41.82 Altered mental status, unspecified (principal); I10 Essential (primary) hypertension; J44.9 Chronic obstructive pulmonary disease, unspecified; Z72.0 Tobacco use
CPT/HCPCS: 36415; 70450; 71045; 80053; 81000; 82947; 84484; 85025; 85610; 85730; 93005; 93041

== ENCOUNTER 2023-03-21 13:49 | Emergency (ER) | payer SELFPAY ==
[2023-03-21] MEDS ORDERED: fentaNYL INJECTION 100 MCG/2 ML VIAL IVP ONE (14:15)
--- NOTE | 2023-03-21 14:19 | ED Abdominal Pain ---
General Chief Complaint: Abdominal/GI Problems Stated Complaint: AB PAIN Nursing Triage Note: PT AMB TO RM 6 PT CO OF ABD PAIN ON R SIDE AND BACK FOR APPROX 4 DAYS. PT RATES PAIN 7/10. PT HAS HAD NAUSEA NO VOMITING BUT SOME DIARRHEA Source of Information: Patient Exam Limitations: No Limitations (JOVNAA MENDEZ APRN) History of Present Illness Date Seen by Provider: Mar 21, 2023 Time Seen by Provider: 13:52 Initial Comments 62-year-old male presents to the ER with complaint of pain to his right upper abdomen/right/ribs/right flank area started approximately 4 days ago. He denies any known injury to the area. States that a couple days ago he was having nausea, denies any vomiting. Denies current nausea. Denies diarrhea. Last bowel movement was this morning and normal. He states that taking deep breaths makes the pain worse. Denies any change in the pain after eating. He denies cough, chest pain, shortness of air, dysuria, and hematuria. Reports history of IBS, but states this does not feel like his IBS. States he has not had issues with IBS for several years. Denies any previous abdominal surgeries. (JOVANA MENDEZ APRN) Allergies and Home Medications Allergies Coded Allergies: No Known Drug Allergies (Unverified , 04/14/16) Patient Home Medication List Home Medication List Reviewed: Yes (JOVANA MENDEZ APRN) Review of Systems Review of Systems Constitutional: see HPI (JOVANA MENDEZ APRN) Past Aorlvwx-Riucfz-Jzbmrk Hx Patient Social History Tobacco Use?: Yes Tobacco type used: Cigarettes Smoking Status: Current Everyday Smoker Substance use?: No Alcohol Use?: No Pt feels they are or have been: No (JOVANA MENDEZ APRN) Immunizations Up To Date Tetanus Booster (TDap): More than 5yrs First/Initial COVID19 Vaccinat: 09/06 Second COVID19 Vaccination Alonzo: 10/07 Third COVID19 Vaccination Date: (JOVANA MENDEZ APRN) Seasonal Allergies Seasonal Allergies: No (JOVANA MENDEZ APRN) Past Medical History Surgery/Hospitalization HX: HTN,COPD, ANX, IBS Surgeries: Yes (URETHRAL DILATION, INGUINAL HERNIA, COLONOSCOPY 2015, HEMORROIDECTOMY) Abdominal Respiratory: No Currently Using CPAP: No Currently Using BIPAP: No Cardiac: No Neurological: Yes Seizure Disorder Reproductive Disorders: No Sexually Transmitted Disease: No HIV/AIDS: No Genitourinary: Yes Prostate Problems Gastrointestinal: Yes Gastroesophageal Reflux Musculoskeletal: Yes Chronic Back Pain Endocrine: No HEENT: Yes Loss of Vision: Bilateral Hearing Impairment: Hard of Hearing Cancer: No Psychosocial: Yes Anxiety, Depression Integumentary: No Blood Disorders: No Adverse Reaction/Blood Tranf: No (N/A) (JOVANA MENDEZ APRN) Family Medical History Alcoholism 19 FATHER G8 BROTHER (alcoholism) Arthritis G8 BROTHER (gout) Diabetes mellitus 19 MOTHER (diabetic leg ulcers) Hypertension 19 MOTHER Neoplasm 19 FATHER (cancer of pancreas) Physical Exam Vital Signs Vital Signs - First Documented 03/21/23 03/21/23 13:50 16:43 Temp 37.1 Pulse 84 Resp 18 B/P (MAP) 145/89 (107) Pulse Ox 97 (FRANCIA MCDOWELL MD) Vital Signs Capillary Refill : Less Than 3 Seconds (JOVANA MENDEZ APRN) Height/Weight/BMI Height: 5'11.00" Weight: 160lbs. 0oz. 72.671056to; 22.00 BMI Method:Stated General Appearance: WD/WN, no apparent distress Neck: supple, normal inspection Respiratory: lungs clear, normal breath sounds, no respiratory distress, no accessory muscle use Cardiovascular: regular rate, rhythm Gastrointestinal: normal bowel sounds, soft; No guarding, No rebound; tenderness (Right upper quadrant), other (Marquez sign negative) Extremities: normal range of motion, non-tender, normal inspection, no pedal edema, no calf tenderness, normal capillary refill, other (Pulses equal bilaterally in upper and lower extremities) Back: CVA tenderness (R) Neurologic/Psychiatric: alert, normal mood/affect Skin: normal color, warm/dry (JOVANA MENDEZ APRN) Progress/Results/Core Measures Results/Orders Lab Results Laboratory Tests Test 03/21/23 14:00 03/21/23 14:47 Range/Units White Blood Count 7.8 4.3-11.0 10^3/uL Red Blood Count 5.48 4.30-5.52 10^6/uL Hemoglobin 16.7 13.3-17.7 g/dL Hematocrit 51 40-54 % Mean Corpuscular Volume 94 80-99 fL Mean Corpuscular Hemoglobin 31 25-34 pg Mean Corpuscular Hemoglobin Concent 33 32-36 g/dL Red Cell Distribution Width 12.5 10.0-14.5 % Platelet Count 230 130-400 10^3/uL Mean Platelet Volume 10.3 9.0-12.2 fL Immature Granulocyte % (Auto) 0 % Neutrophils (%) (Auto) 57 42-75 % Lymphocytes (%) (Auto) 35 12-44 % Monocytes (%) (Auto) 6 0-12 % Eosinophils (%) (Auto) 1 0-10 % Basophils (%) (Auto) 1 0-10 % Neutrophils # (Auto) 4.5 1.8-7.8 10^3/uL Lymphocytes # (Auto) 2.7 1.0-4.0 10^3/uL Monocytes # (Auto) 0.5 0.0-1.0 10^3/uL Eosinophils # (Auto) 0.1 0.0-0.3 10^3/uL Basophils # (Auto) 0.1 0.0-0.1 10^3/uL Immature Granulocyte # (Auto) 0.0 0.0-0.1 10^3/uL D-Dimer < 0.27 0.00-0.49 UG/ML Sodium Level 138 135-145 MMOL/L Potassium Level 4.4 3.6-5.0 MMOL/L Chloride Level 106 98-107 MMOL/L Carbon Dioxide Level 22 21-32 MMOL/L Anion Gap 10 5-14 MMOL/L Blood Urea Nitrogen 7 7-18 MG/DL Creatinine 0.80 0.60-1.30 MG/DL Estimat Glomerular Filtration Rate 101 BUN/Creatinine Ratio 9 Glucose Level 146 H 70-105 MG/DL Calcium Level 9.3 8.5-10.1 MG/DL Corrected Calcium 9.1 8.5-10.1 MG/DL Magnesium Level 2.4 1.6-2.4 MG/DL Total Bilirubin 0.4 0.1-1.0 MG/DL Aspartate Amino Transf (AST/SGOT) 19 5-34 U/L Alanine Aminotransferase (ALT/SGPT) 14 0-55 U/L Alkaline Phosphatase 68 40-136 U/L Total Protein 7.2 6.4-8.2 GM/DL Albumin 4.3 3.2-4.5 GM/DL Lipase 37 8-78 U/L Urine Color YELLOW Urine Clarity CLEAR Urine pH 7.0 5-9 Urine Specific [place] 1.010 L 1.016-1.022 Urine Protein NEGATIVE NEGATIVE Urine Glucose (UA) NEGATIVE NEGATIVE Urine Ketones NEGATIVE NEGATIVE Urine Nitrite NEGATIVE NEGATIVE Urine Bilirubin NEGATIVE NEGATIVE Urine Urobilinogen 0.2 < = 1.0 MG/DL Urine Leukocyte Esterase NEGATIVE NEGATIVE Urine RBC (Auto) NEGATIVE NEGATIVE Urine RBC NONE /HPF Urine WBC NONE /HPF Urine Squamous Epithelial Cells RARE /HPF Urine Crystals NONE /LPF Urine Bacteria NEGATIVE /HPF Urine Casts NONE /LPF Urine Mucus NEGATIVE /LPF Urine Culture Indicated NO (FRANCIA MCDOWELL MD) Vital Signs/I&O 03/21/23 03/21/23 13:50 16:43 Temp 37.1 Pulse 84 84 Resp 18 B/P (MAP) 145/89 (107) 137/85 Pulse Ox 97 97 (FRANCIA MCDOEWLL MD) Blood Pressure Mean: 107 Progress Progress Note : Progress Note Patient seen and evaluated, resting comfortably in bed, no acute distress. Based on exam and symptoms, differential diagnosis includes but is not limited to nephrolithiasis, pyelonephritis, cholecystitis, pneumonia, PE, dissecting aortic aneurysm. I am less concerned for dissecting aortic aneurysm, because patient has equal pulses bilaterally, no focal neurological deficits, blood pressure is equal bilaterally. I am also less concerned for PE, due to no tachycardia, signs of DVT, no shortness of air or chest pain, no hemoptysis. Workup initiated included CBC, CMP, lipase, magnesium, D-dimer, chest x-ray. Fentanyl ordered for pain. 1508 Labs and chest x-ray reviewed. CBC grossly normal. CMP grossly normal. Glucose slightly elevated 146. Lipase normal. D-dimer negative. Urinalysis negative for infection, negative for RBCs. Chest x-ray is negative for acute cardiopulmonary process. CT of the chest abdomen, and pelvis ordered. 1 L of IV fluids ordered. [address] shows mild background emphysematous changes with evidence of chronic granulomatous disease. Mural thickening is noted involving the majority of the transverse and descending colon extended to the proximal and sigmoid colon. They are not optimally distended. Could be related to poor distention or mild colitis. No evidence of bowel obstruction. The location of the mural thickening is not the location of patient's pain, I do not think that he has colitis. The gallbladder was also unremarkable on the CT. Moderate vascular calcifications without aneurysmal dilatation of the abdominal aorta is noted. Based on evaluation, I believe patient is safe for discharge. I am uncertain of the cause of his pain. Pain could be related to his gallbladder, although this is not evidenced on CT. He will likely need an ultrasound to further evaluate, we do not have ultrasound capabilities today since it is the weekend. Results discussed with patient. Patient states he last ate this morning, informed him of his slightly elevated blood sugar. Patient instructed to follow-up with his primary care provider for further evaluation. He states that he has an appointment with his primary care provider tomorrow at 3 PM. All questions sought and answered. Patient is stable for discharge. Discharge instructions and return precautions provided. (JOVANA MENDEZ APRN) Diagnostic Imaging Diagonstic Imaging: Xray Plain Films/CT/US/NM/MRI: chest [facility] [place] [place] NAME: HAVEN [facility] REC#: [id number] PT STATUS: REG ER : 1960 PHYSICIAN: JOVANA MENDEZ APRN ADMIT DATE: 03/21/23/ER Signed Date of Exam:03/21/23 CHEST PA/LAT (2 VIEW) EXAMINATION: Chest, 2 views. HISTORY: Right upper quadrant pain. Chest pain. COMPARISON: 02/07/2021. FINDINGS: The lung volumes are normal. No focal consolidation is seen. No large pleural effusion or pneumothorax is seen. The cardiomediastinal silhouette is normal in size and contour. No acute osseous abnormality is seen. IMPRESSION: No acute pleuroparenchymal process. Dictated by: Dictated on workstation # [id number] Dict: 03/21/23 1433 Trans: 03/21/23 1441 [id number] Interpreted by: JENNIFER CALLAHAN DO Electronically signed by: JENNIFER CALLAHAN DO 03/21/23 1441 Diagonstic Imaging: CT Plain Films/CT/US/NM/MRI: abdomen, pelvis Comments [facility] [place] [place] NAME: HAVEN TEJADA [facility] REC#: [id number] PT STATUS: REG ER : 1960 PHYSICIAN: JOVANA MENDEZ APRN ADMIT DATE: 03/21/23/ER Draft Date of Exam:03/21/23 CT CHEST/ABDOMEN/PELVIS W PROCEDURE: CT chest, abdomen, and pelvis with contrast. TECHNIQUE: Multiple contiguous axial images were obtained through the chest, abdomen, and pelvis after the administration of intravenous contrast. Auto Exposure Controls were utilized during the CT exam to meet ALARA standards for radiation dose reduction. INDICATION: Right-sided flank pain, right upper quadrant pain. COMPARISON: Radiographs of the chest from the same date. FINDINGS: No pathologically enlarged lymph nodes within the chest. Mild scattered vascular calcifications within the thoracic aorta and its branch vessels. A few calcified granuloma are present in the lungs, bilaterally. Heart is within normal limits in size. No pericardial effusion. No pleural effusion. The trachea is patent. No pneumothorax. Minimal biapical pleural scarring. Mild background emphysematous changes. No acute osseous abnormality within the chest with mild scattered degenerative changes noted. A few tiny subcentimeter hypodensities are identified within the liver which are too small to completely characterize. The spleen is unremarkable. The adrenal glands are unremarkable. The pancreas is unremarkable. The gallbladder is unremarkable. The bilateral kidneys are unremarkable. Moderate vascular calcifications without aneurysmal dilatation of the abdominal aorta. Tiny fat-containing umbilical hernia. Small fat-containing left inguinal hernia. The urinary bladder is grossly unremarkable. Mural thickening is noted involving the majority of the transverse and descending colon extending into the proximal sigmoid colon. These regions of colon are not optimally distended. No bowel obstruction. The appendix is unremarkable. No significant adenopathy, free air, or free fluid within the abdomen or pelvis. Scattered osseous degenerative changes without acute osseous abnormality. IMPRESSION: Mild background emphysematous changes with evidence of chronic granulomatous disease. Renal thickening of the mid to distal colon related to poor distention versus mild colitis. No evidence of bowel obstruction. Additional findings as above. Dictated on workstation # [id number] Dict: 03/21/23 1539 Trans: 03/21/23 1606 [facility] [id number] Interpreted by: MICHI CHAVEZ MD Electronically signed by: (JOVANA MENDEZ APRN) Departure Impression Primary Impression: Abdominal pain Qualified Codes: R10.11 - Right upper quadrant pain Additional Impression: Right flank pain Disposition: 01 HOME, SELF-CARE Condition: Stable Departure-Patient Inst. Decision time for Depature: 16:37 (JOVANA MENDEZ APRN) Referrals: [facility] [place] (PCP/Family) Primary Care Physician Patient Instructions: Severe Abdominal Pain, Adult (DC) Add. Discharge Instructions: Follow-up with your primary care provider tomorrow as scheduled. I am uncertain of the cause of your pain at this time, but you need to see your primary care provider for further evaluation. Try taking ibuprofen 800 mg every 8 hours with food as needed for pain. This will help with pain and inflammation. You may also take 1000 mg of Tylenol every 8 hours as needed for pain. Return to the ER if you develop worsening pain, severe shortness of breath, chest pain, recurrent vomiting, or any other new, concerning, or worsening symptoms All discharge instructions reviewed with patient and/or family. Voiced understanding. ATTENDING PHYSICIAN NOTE: I was physically present as attending physician in the emergency department during the care of this patient, but I was not directly involved in the decision making or delivery of care for this patient. (FRANCIA MCDOWELL MD) Copy Copies To 1: [facility]/JOVANA DAVE APRN Mar 21, 2023 14:19 FRANCIA MCDOWELL MD Mar 23, 2023 13:31
[2023-03-21 14:23] LABS: BASOPHILS # (AUTO) 0.1 10^3/uL (0.0-0.1); BASOPHILS % (AUTO) 1 % (0-10); EOSINOPHILS # (AUTO) 0.1 10^3/uL (0.0-0.3); EOSINOPHILS % (AUTO) 1 % (0-10); HEMATOCRIT 51 % (40-54); HEMOGLOBIN 16.7 g/dL (13.3-17.7); LYMPHOCYTES # (AUTO) 2.7 10^3/uL (1.0-4.0); LYMPHOCYTES % (AUTO) 35 % (12-44); MEAN CORPUSCULAR HEMOGLOBIN 31 pg (25-34); MEAN CORPUSCULAR HGB CONC 33 g/dL (32-36); MEAN CORPUSCULAR VOLUME 94 fL (80-99); MEAN PLATELET VOLUME 10.3 fL (9.0-12.2); MONOCYTES # (AUTO) 0.5 10^3/uL (0.0-1.0); MONOCYTES % (AUTO) 6 % (0-12); NEUTROPHILS # (AUTO) 4.5 10^3/uL (1.8-7.8); NEUTROPHILS % (AUTO) 57 % (42-75); PLATELET COUNT 230 10^3/uL (130-400); WHITE BLOOD COUNT 7.8 10^3/uL (4.3-11.0)
[2023-03-21 14:27] LABS: ALBUMIN 4.3 GM/DL (3.2-4.5); POTASSIUM 4.4 MMOL/L (3.6-5.0)
[2023-03-21 14:28] LABS: CALCIUM 9.3 MG/DL (8.5-10.1)
[2023-03-21 14:29] LABS: TOTAL PROTEIN 7.2 GM/DL (6.4-8.2)
[2023-03-21 14:31] LABS: BILIRUBIN,TOTAL 0.4 MG/DL (0.1-1.0)
[2023-03-21 14:33] LABS: CREATININE SERUM 0.8 MG/DL (0.60-1.30)
[2023-03-21 14:35] LABS: MAGNESIUM 2.4 MG/DL (1.6-2.4)
--- NOTE | 2023-03-21 14:36 | Diagnostic Imaging Report ---
EXAMINATION: Chest, 2 views. HISTORY: Right upper quadrant pain. Chest pain. COMPARISON: 02/07/2021. FINDINGS: The lung volumes are normal. No focal consolidation is seen. No large pleural effusion or pneumothorax is seen. The cardiomediastinal silhouette is normal in size and contour. No acute osseous abnormality is seen. IMPRESSION: No acute pleuroparenchymal process. Dictated by: Dictated on workstation # [id number]
[2023-03-21 15:03] LABS: CLARITY,URINE CLEAR; COLOR,URINE YELLOW; GLUCOSE, URINE (UA) NEGATIVE (NEGATIVE); KETONES,URINE NEGATIVE (NEGATIVE); PROTEIN,URINE NEGATIVE (NEGATIVE)
[2023-03-21 15:04] LABS: BILIRUBIN,URINE NEGATIVE (NEGATIVE); LEUKOCYTE ESTERASE ,URINE NEGATIVE (NEGATIVE); NITRITE,URINE NEGATIVE (NEGATIVE)
[2023-03-21 15:05] LABS: BACTERIA,URINE NEGATIVE /HPF; SQUAMOUS EPITHELIAL CELL,UR RARE /HPF
[2023-03-21] MEDS ORDERED: IOHEXOL 350 MG/ML 100 ML (OMNIPAQUE 350) VIAL IV ONE (15:15)
[2023-03-21] MEDS ORDERED: NS 100 ML (IVPB) BAG IV ONE (15:15)
[2023-03-21] MEDS ORDERED: HOLD METFORMIN - RECEIVED CONTRAST 20 ML VIAL IV SCH (15:15)
[2023-03-21] MEDS ORDERED: NS IV 1000 ML 1,000 ML IV SCH (15:15)
--- NOTE | 2023-03-21 16:07 | Diagnostic Imaging Report ---
PROCEDURE: CT chest, abdomen, and pelvis with contrast. TECHNIQUE: Multiple contiguous axial images were obtained through the chest, abdomen, and pelvis after the administration of intravenous contrast. Auto Exposure Controls were utilized during the CT exam to meet ALARA standards for radiation dose reduction. INDICATION: Right-sided flank pain, right upper quadrant pain. COMPARISON: Radiographs of the chest from the same date. FINDINGS: No pathologically enlarged lymph nodes within the chest. Mild scattered vascular calcifications within the thoracic aorta and its branch vessels. A few calcified granuloma are present in the lungs, bilaterally. Heart is within normal limits in size. No pericardial effusion. No pleural effusion. The trachea is patent. No pneumothorax. Minimal biapical pleural scarring. Mild background emphysematous changes. No acute osseous abnormality within the chest with mild scattered degenerative changes noted. A few tiny subcentimeter hypodensities are identified within the liver which are too small to completely characterize. The spleen is unremarkable. The adrenal glands are unremarkable. The pancreas is unremarkable. The gallbladder is unremarkable. The bilateral kidneys are unremarkable. Moderate vascular calcifications without aneurysmal dilatation of the abdominal aorta. Tiny fat-containing umbilical hernia. Small fat-containing left inguinal hernia. The urinary bladder is grossly unremarkable. Mural thickening is noted involving the majority of the transverse and descending colon extending into the proximal sigmoid colon. These regions of colon are not optimally distended. No bowel obstruction. The appendix is unremarkable. No significant adenopathy, free air, or free fluid within the abdomen or pelvis. Scattered osseous degenerative changes without acute osseous abnormality. IMPRESSION: Mild background emphysematous changes with evidence of chronic granulomatous disease. Mural thickening of the mid to distal colon related to poor distention versus mild colitis. No evidence of bowel obstruction. Additional findings as above. Dictated by: Dictated on workstation # [id number]
[2023-03-21 16:43] VITALS: BP 137/85
== END 2023-03-21 16:43 | disposition home or self-care (01) ==
LOC: EDUNIT# 13:49 → ER 13:51
DX: R10.11 Right upper quadrant pain (principal); F17.210 Nicotine dependence, cigarettes, uncomplicated
CPT/HCPCS: 36415; 71046; 71260; 74177; 80053; 81000; 83690; 83735; 85025; 85379